=== PATIENT | female | born 1940 | race Two or more races ===

== ENCOUNTER → 2017-11-29 | Outpatient (CLI) | payer MEDICARE ==
[~2017-11-29] MED LIST: AMOX500 PO; ASPI325 PO; Co Q-1010 MG; DILT180ER PO; DOCU100 PO; Multivitamin1 EAC1; ONDA4 PO; OXYACE5T PO; VITAMIN D2000 UNIT; Vitamin B Comple1 EA PO; XARELTO20 MG PO
== END | disposition home or self-care (01) ==
LOC: LAB SHORT 07:23 → PLD 07:23
DX: C44.712 Basal cell carcinoma of skin of right lower limb, including hip (principal); L30.8 Other specified dermatitis
CPT/HCPCS: 88305; 88312; 88313

== ENCOUNTER → 2018-01-16 | Outpatient (CLI) | payer MEDICARE ==
[~2018-01-16] MED LIST changes: -Co Q-1010 MG; -DILT180ER PO; -Multivitamin1 EAC1; -VITAMIN D2000 UNIT; -Vitamin B Comple1 EA PO; -XARELTO20 MG PO
== END ==
LOC: LAB SHORT 14:17 → PLD 14:17
DX: C44.712 Basal cell carcinoma of skin of right lower limb, including hip (principal)
CPT/HCPCS: 88305

== ENCOUNTER 2019-07-08 05:39 | Day surgery (SDC) | payer MEDICARE ==
[~2019-07-08] VITALS: Ht 154.9 cm; Wt 65.0 kg
[~2019-07-08 05:39] MED LIST changes: +Co Q-1010 MG; +DILT180ER PO; +METO25ER PO; +OMEPRAZOLE20 MG PO; +THERA1 EACH PO; +VITAMIN D2000 UNIT; +Vitamin B Comple1 EA PO; +XARELTO20 MG PO
--- NOTE | 2019-07-08 07:25 | NUR ---
ASHLYN POWELL AND HITESH IN ROOM TO SEE PATIENT.
--- NOTE | 2019-07-08 08:11 | NUR ---
TIME OUT COMPLETED AT 0749. PT RECEIVED 200J SYNCHRONIZED SHOCK AT 0751; AND A 100 J SYNCHRONIZED SHOCK AT 0800. PT TOLERATED CARDIOVERSION WELL. CALL LIGHT IN REACH.
--- NOTE | 2019-07-08 08:29 | NUR ---
MICHAEL IN ROOM FOR POST CARDIOVERSION ECH0.
--- NOTE | 2019-07-08 09:10 | NUR ---
DISCHARGE INSTRUCTIONS REVIEWED AND ALL QUESTIONS ANSWERED. 20 G IV DISCONTINUED FROM LEFT WRIST WITH INTACT CANNULA. PT ESCORTED OUT VIA WHEELCHAIR ESCORT.
== END 2019-07-08 23:06 | disposition home or self-care (01) ==
LOC: MHTC 05:39
DX: I48.0 Paroxysmal atrial fibrillation (principal); I08.3 Combined rheumatic disorders of mitral, aortic and tricuspid valves; R60.9 Edema, unspecified; E78.5 Hyperlipidemia, unspecified; G47.30 Sleep apnea, unspecified; Z88.5 Allergy status to narcotic agent; Z88.8 Allergy status to other drugs, medicaments and biological substances
CPT/HCPCS: 92960; 93005; 93010; 93306; J2704; J7120

== ENCOUNTER 2019-07-17 17:45 | Inpatient (IN) | payer MEDICARE ==
[~2019-07-17] VITALS: Ht 154.9 cm; Wt 66.1 kg
[2019-07-17 19:32] LABS: BASOPHILS ABSOLUTE AUTO 0.07 K/mm3 (0.00-0.23); BASOPHILS PERCENT AUTO 1 % (0-2); EOSINOPHILS ABSOLUTE AUTO 0.46 K/mm3 (0.00-0.68); EOSINOPHILS PERCENT AUTO 5 % (0-6); Hematocrit 38.7 % (33.0-51.0); Hemoglobin 12.5 g/dL (11.5-16.0); IMMATURE GRAN ABSOLUTE AUTO 0.05 K/mm3 (0.00-0.10); IMMATURE GRAN PERCENT AUTO 1 % (0-1); LYMPHOCYTES ABSOLUTE AUTO 1.77 K/mm3 (0.84-5.20); LYMPHOCYTES PERCENT AUTO 21 % (21-46); MONOCYTES ABSOLUTE AUTO 0.67 K/mm3 (0.16-1.47); MONOCYTES PERCENT AUTO 8 % (4-13); Mean Corpuscular HGB 30.6 pg (26.0-34.0); Mean Corpuscular HGB Conc 32.3 g/dL (31.5-36.5); Mean Corpuscular Volume 95 fL (80-100); Mean Platelet Volume 10.3 fL (9.1-12.4); NEUTROPHILS ABSOLUTE AUTO 5.54 K/mm3 (1.96-9.15); NEUTROPHILS PERCENT AUTO 65 % (41-73); Platelet Count 377 K/mm3 (150-400); RDW Coefficient Variation 13.9 % (11.7-14.2); RDW Standard Deviation 48.6 fL (35.1-46.3); Red Blood Cell Count 4.08 M/mm3 (3.80-5.20); White Blood Cell Count 8.56 K/mm3 (4.00-11.30)
[2019-07-17 19:59] LABS: Alanine Aminotransfer (ALT/SGP 49 U/L (12-78); Albumin, Blood 3.4 g/dL (3.4-5.0); Albumin/Globulin Ratio 0.8 (0.8-1.8); Alk Phos 89 U/L (50-136); Anion Gap 5 mmol/L (6-16); Aspartate Aminotrans (AST/SGOT 30 U/L (12-37); Bilirubin, Total 0.4 mg/dL (0.1-1.0); Blood Urea Nitrogen 15 mg/dL (8-24); Bun/Creatinine Ratio 18.5 (12.0-20.0); CO2, Blood 27 mmol/L (21-32); Chloride, Blood 105 mmol/L (98-108); Creatinine, Blood 0.81 mg/dL (0.40-1.00); Globulin, Blood 4.1 g/dL (2.2-4.0); Glomerular Filtration Rate >60 (60-); Glucose, Blood 103 mg/dL (70-99); Potassium, Blood 4.1 mmol/L (3.5-5.5); Sodium, Blood 137 mmol/L (136-145); Total Protein, Blood 7.5 g/dL (6.4-8.2); Troponin I <0.015 ng/mL (0.000-0.040)
[2019-07-18] MEDS ORDERED: METO25ER PO (03:11)
[2019-07-18] MEDS ORDERED: COMPLETE PO (03:15)
[2019-07-18] MEDS ORDERED: VITAMIN D31000 UNI2 PO (03:17)
[2019-07-18] MEDS ORDERED: B Complex-Foli1 EACH PO (03:18)
[2019-07-18] MEDS ORDERED: VITAMIN C PO (03:18)
[2019-07-18 04:46] LABS: BASOPHILS ABSOLUTE AUTO 0.07 K/mm3 (0.00-0.23); BASOPHILS PERCENT AUTO 1 % (0-2); EOSINOPHILS ABSOLUTE AUTO 0.55 K/mm3 (0.00-0.68); EOSINOPHILS PERCENT AUTO 7 % (0-6); Hematocrit 36.2 % (33.0-51.0); Hemoglobin 11.7 g/dL (11.5-16.0); IMMATURE GRAN ABSOLUTE AUTO 0.04 K/mm3 (0.00-0.10); IMMATURE GRAN PERCENT AUTO 1 % (0-1); LYMPHOCYTES ABSOLUTE AUTO 1.54 K/mm3 (0.84-5.20); LYMPHOCYTES PERCENT AUTO 19 % (21-46); MONOCYTES PERCENT AUTO 9 % (4-13); Mean Corpuscular HGB 30.9 pg (26.0-34.0); Mean Corpuscular HGB Conc 32.3 g/dL (31.5-36.5); Mean Corpuscular Volume 96 fL (80-100); Mean Platelet Volume 10.3 fL (9.1-12.4); NEUTROPHILS ABSOLUTE AUTO 5.15 K/mm3 (1.96-9.15); NEUTROPHILS PERCENT AUTO 64 % (41-73); Platelet Count 353 K/mm3 (150-400); RDW Standard Deviation 49.1 fL (35.1-46.3); Red Blood Cell Count 3.79 M/mm3 (3.80-5.20); White Blood Cell Count 8.05 K/mm3 (4.00-11.30)
[2019-07-18 05:05] LABS: Anion Gap 4 mmol/L (6-16); Blood Urea Nitrogen 13 mg/dL (8-24); Bun/Creatinine Ratio 16.2 (12.0-20.0); CO2, Blood 31 mmol/L (21-32); Calcium, Blood 8.8 mg/dL (8.5-10.1); Chloride, Blood 104 mmol/L (98-108); Glomerular Filtration Rate >60 (60-); Glucose, Blood 91 mg/dL (70-99); Potassium, Blood 3.9 mmol/L (3.5-5.5); Sodium, Blood 139 mmol/L (136-145)
--- NOTE | 2019-07-18 06:42 | NUR ---
Shift summary. Pt admitted around 0400 from ER with pneumonia. Admission completed. Pt given some tums for c/o regurg. pt getting a thoracentesis in am. Pt started on a tibiotics in er- tolerated well. Pt ambulatory with use of cane- does very well.
--- NOTE | 2019-07-18 19:33 | NUR ---
SHIFT SUMMARY PT 1 PERSON ASSIST USING FWW TO BATHRROM AND BACK. UP IN CHAIR FOR SUPPER. SHOWER TAKEN THIS MORNING. HR HAS BEEN IN 115-130'S TODAY WITH LOPRESSOR TREATMENT. REPORTS WHEN SHE STARTS GETTING BURPS HER HEART RATE HAS A TENDENCY TO INCREASE. PLANS FOR THORACENTESIS FOR TOMORROW. SOB WITH ANY ACTIVITY. SEVERAL VISITORS IN TO SEE PT THROUGH DAY.
--- NOTE | 2019-07-19 05:16 | NUR ---
SHIFT SUMMARY: PT A&O X4. HR REMAINS ELEVATED T/O SHIFT. PER CUSTOM FURRIER, HR RANGING FROM 105-110 THIS MORNING WITH AFIB. O2 SATS STABLE ON 2L VIA NC. SOB WITH EXERTION. PT 1 SBA TO BATHROOM USING FWW. VOIDING WELL. ABX INFUSING PER EMAR. PLAN FOR THORACENTESIS TODAY.
--- NOTE | 2019-07-19 18:24 | NUR ---
PATIENT A/OX4, UP WITH FWW AND SBA IN HALLS. A-FIB ON TELE, PULSE HIGH THE 130'S AND DR. SILVA ORDERED A ONE TIME DOSE OF METOPROLOL. SHE WILL RECEIVE ANOTHER DOSE THIS EVENING. PATIENT ON 2LO2, LUNGS DIM IN THE BASES. COOPERATIVE WITH CAER, CAN BE ANXIOUS AT TIMES. PLAN WAS TO HAVE A THORACENTESIS TODAY, BUT XARELTO WAS GIVEN IN THE EVENING ON 07/17 AND HAS TO WAIT AT LEAST 48 HOURS AFTER THE LAST DOSE. PATIENT ON LOVENOX TODAY, TO BE HELD TOMORROW. 20G IV TO L FA WNL AND SL BETWEEN ABX. CALLS APPROPRIATELY FOR ASSISTANCE.
--- NOTE | 2019-07-19 23:14 | NUR ---
EARLIER HR ELEVATED, MED DISTRIBUTION TECH NOTIFIED ME, UPON ENTERING ROOM, PT REPORTED HAVING JUST GOTTEN BACK IN BED POST BR. HS MED GIVEN, VS TAKEN. HR RATE DECREASED TO 111. SEE DOC FLOW SHEETS FOR DETAILS. WILL CONTINUE TO MONITOR. AFFECT SMILING AFTER I SPOKE WITH HER. SHE HAD ALSO VOICED WORRIES RE PROCEDURE TOMORROW (THORACENTESIS). - KATHY
[2019-07-20 05:07] LABS: BASOPHILS ABSOLUTE AUTO 0.06 K/mm3 (0.00-0.23); BASOPHILS PERCENT AUTO 1 % (0-2); EOSINOPHILS ABSOLUTE AUTO 0.47 K/mm3 (0.00-0.68); EOSINOPHILS PERCENT AUTO 6 % (0-6); Hematocrit 32.6 % (33.0-51.0); Hemoglobin 10.3 g/dL (11.5-16.0); IMMATURE GRAN ABSOLUTE AUTO 0.03 K/mm3 (0.00-0.10); IMMATURE GRAN PERCENT AUTO 0 % (0-1); LYMPHOCYTES ABSOLUTE AUTO 1.46 K/mm3 (0.84-5.20); LYMPHOCYTES PERCENT AUTO 19 % (21-46); MONOCYTES ABSOLUTE AUTO 0.74 K/mm3 (0.16-1.47); MONOCYTES PERCENT AUTO 10 % (4-13); Mean Corpuscular HGB 30.1 pg (26.0-34.0); Mean Corpuscular HGB Conc 31.6 g/dL (31.5-36.5); Mean Corpuscular Volume 95 fL (80-100); Mean Platelet Volume 10.5 fL (9.1-12.4); NEUTROPHILS ABSOLUTE AUTO 4.95 K/mm3 (1.96-9.15); NEUTROPHILS PERCENT AUTO 64 % (41-73); Platelet Count 339 K/mm3 (150-400); RDW Standard Deviation 49.2 fL (35.1-46.3); Red Blood Cell Count 3.42 M/mm3 (3.80-5.20); White Blood Cell Count 7.71 K/mm3 (4.00-11.30)
[2019-07-20 05:29] LABS: Alanine Aminotransfer (ALT/SGP 30 U/L (12-78); Albumin, Blood 2.6 g/dL (3.4-5.0); Albumin/Globulin Ratio 0.8 (0.8-1.8); Alk Phos 68 U/L (50-136); Anion Gap 5 mmol/L (6-16); Aspartate Aminotrans (AST/SGOT 24 U/L (12-37); Bilirubin, Total 0.3 mg/dL (0.1-1.0); Blood Urea Nitrogen 13 mg/dL (8-24); Bun/Creatinine Ratio 16.2 (12.0-20.0); CO2, Blood 28 mmol/L (21-32); Calcium, Blood 8.2 mg/dL (8.5-10.1); Chloride, Blood 108 mmol/L (98-108); Globulin, Blood 3.2 g/dL (2.2-4.0); Glomerular Filtration Rate >60 (60-); Glucose, Blood 102 mg/dL (70-99); Potassium, Blood 3.9 mmol/L (3.5-5.5); Sodium, Blood 141 mmol/L (136-145); Total Protein, Blood 5.8 g/dL (6.4-8.2)
--- NOTE | 2019-07-20 05:53 | NUR ---
INTERMITTENT RESTLESSNESS MID SHIFT, VOICED WORRIES RE THORACENTESIS TO BE PERFORMED TODAY. DISCUSSED PROCEDURES WITH NURSE, SEEMED LESS APPREHENSIVE. WAS UP TO BATHROOM X 1 AT HS AND HR ELEVATED TO 130'S - MOLD BUNCH TRIMMER NOTIFIED NURSE, NURSE CHECKED HER. PULSE DECREASED TO 111. SCHEDULED MEDS GIVEN (SEE DEC) AND NO NOTED FURTHER S/S. CURRENTLY RESTING QUIETLY. HOB ELEVATED FOR ERWIN BREATHING. LUNG SOUNDS DIMINISHED. CALL LIGHT IN REACH.
[2019-07-20 13:32] LABS: Automated BF RBC Count 0.003 M/mm3 (0-0); Automated BF WBC Count 1.959 K/mm3 (0-999); Body Fluid WBC Count 1959 /mm3 (0-999); RBC Count, Body Fluid 3000 /mm3 (0-0)
[2019-07-20 13:40] LABS: Albumin, Body Fluid 2.2 g/dL; Lactate Dehydrogenase, Body Fl 147 U/L
[2019-07-20 14:35] LABS: Total Cell Count, Body Fluid 100
[2019-07-20 14:36] LABS: Appearance, Body Fluid Hazy (Clear); Color, Body Fluid Yellow (None-Yellow)
--- NOTE | 2019-07-20 18:51 | NUR ---
PT TO IMAGING FOR [place].S. GUIDED THORACENTESIS THIS AFTERNOON. TOLERATED WELL, SEE PROCEDURE NOTES. NO ACUTE CHANGES NOTED THIS SHIFT. WILL CONTINUE TO MONITOR AND REPORT TO ONCOMING RN.
--- NOTE | 2019-07-21 04:43 | NUR ---
SHIFT COMMENCE PT VOICED APPREHENSION RE DISCOMFORT AROUND SIDES AND BACK POST THORACENTESIS. SITE CHECKED, BANDAID HAD SMALL AMT DRY DRAINAGE. SITE APPEARED DRY. IV ANTIBIOTICS CONTINUED. LATER IN SHIFT PT NOTED TO BE SLEEPING POST RECEIVING TYLENOL FOR PAIN. CALL LIGHT IN REACH. WILL MONITOR
[2019-07-21 07:03] LABS: BASOPHILS ABSOLUTE AUTO 0.07 K/mm3 (0.00-0.23); BASOPHILS PERCENT AUTO 1 % (0-2); EOSINOPHILS ABSOLUTE AUTO 0.54 K/mm3 (0.00-0.68); EOSINOPHILS PERCENT AUTO 6 % (0-6); Hematocrit 33.8 % (33.0-51.0); Hemoglobin 10.9 g/dL (11.5-16.0); IMMATURE GRAN ABSOLUTE AUTO 0.05 K/mm3 (0.00-0.10); IMMATURE GRAN PERCENT AUTO 1 % (0-1); LYMPHOCYTES ABSOLUTE AUTO 0.93 K/mm3 (0.84-5.20); LYMPHOCYTES PERCENT AUTO 11 % (21-46); MONOCYTES ABSOLUTE AUTO 0.79 K/mm3 (0.16-1.47); MONOCYTES PERCENT AUTO 9 % (4-13); Mean Corpuscular HGB 30.2 pg (26.0-34.0); Mean Corpuscular HGB Conc 32.2 g/dL (31.5-36.5); Mean Corpuscular Volume 94 fL (80-100); NEUTROPHILS ABSOLUTE AUTO 6.36 K/mm3 (1.96-9.15); NEUTROPHILS PERCENT AUTO 73 % (41-73); Platelet Count 382 K/mm3 (150-400); RDW Coefficient Variation 14.1 % (11.7-14.2); RDW Standard Deviation 48.5 fL (35.1-46.3); Red Blood Cell Count 3.61 M/mm3 (3.80-5.20); White Blood Cell Count 8.74 K/mm3 (4.00-11.30)
[2019-07-21 07:23] LABS: Alanine Aminotransfer (ALT/SGP 31 U/L (12-78); Albumin, Blood 2.6 g/dL (3.4-5.0); Albumin/Globulin Ratio 0.8 (0.8-1.8); Alk Phos 66 U/L (50-136); Anion Gap 2 mmol/L (6-16); Aspartate Aminotrans (AST/SGOT 31 U/L (12-37); Bilirubin, Total 0.3 mg/dL (0.1-1.0); Blood Urea Nitrogen 14 mg/dL (8-24); Bun/Creatinine Ratio 17.9 (12.0-20.0); CO2, Blood 29 mmol/L (21-32); Calcium, Blood 8.4 mg/dL (8.5-10.1); Chloride, Blood 108 mmol/L (98-108); Creatinine, Blood 0.78 mg/dL (0.40-1.00); Globulin, Blood 3.2 g/dL (2.2-4.0); Glomerular Filtration Rate >60 (60-); Glucose, Blood 107 mg/dL (70-99); Potassium, Blood 4.1 mmol/L (3.5-5.5); Sodium, Blood 139 mmol/L (136-145); Total Protein, Blood 5.8 g/dL (6.4-8.2)
--- NOTE | 2019-07-21 18:42 | NUR ---
PT IS FEELING BETTER TODAY AND IS HOPING TO GO HOME TOMORROW. CHEST XRAY DID SHOW A NEW SM LEFT PLEURAL EFFUSION. PT PLACED ON 1500 ML FLUID RESTRICTION. SHE REMAINS ON 2LNC. NO ACUTE CHANGES NOTED THIS SHIFT. WILL CONTINUE TO MONITOR AND REPORT TO ONCOMING RN.
--- NOTE | 2019-07-22 00:29 | NUR ---
PREVIOUS IV SWELLING WITH PAIN, WAS DC'D AND NEW IV PLACED BY ANOTHER RN
--- NOTE | 2019-07-22 03:31 | NUR ---
RESTING QUIETLY AT THIS TIME. HAS BEEN AWAKE AT INTERVALS, VOICED FRUSTRATION RE IV SITES PAIN AND NEEDING TO BE CHANGED. IV ANTIBIOTICS CONTINUE. CALL LIGHT IN REACH. WILL MONITOR.
[2019-07-22 05:03] LABS: BASOPHILS ABSOLUTE AUTO 0.06 K/mm3 (0.00-0.23); BASOPHILS PERCENT AUTO 1 % (0-2); EOSINOPHILS PERCENT AUTO 5 % (0-6); Hematocrit 32.6 % (33.0-51.0); Hemoglobin 10.6 g/dL (11.5-16.0); IMMATURE GRAN ABSOLUTE AUTO 0.04 K/mm3 (0.00-0.10); IMMATURE GRAN PERCENT AUTO 1 % (0-1); LYMPHOCYTES ABSOLUTE AUTO 1.27 K/mm3 (0.84-5.20); LYMPHOCYTES PERCENT AUTO 15 % (21-46); MONOCYTES ABSOLUTE AUTO 0.81 K/mm3 (0.16-1.47); MONOCYTES PERCENT AUTO 10 % (4-13); Mean Corpuscular HGB 30.5 pg (26.0-34.0); Mean Corpuscular HGB Conc 32.5 g/dL (31.5-36.5); Mean Corpuscular Volume 94 fL (80-100); Mean Platelet Volume 10.4 fL (9.1-12.4); NEUTROPHILS ABSOLUTE AUTO 5.95 K/mm3 (1.96-9.15); NEUTROPHILS PERCENT AUTO 70 % (41-73); Platelet Count 387 K/mm3 (150-400); RDW Coefficient Variation 14.1 % (11.7-14.2); RDW Standard Deviation 47.4 fL (35.1-46.3); Red Blood Cell Count 3.48 M/mm3 (3.80-5.20); White Blood Cell Count 8.53 K/mm3 (4.00-11.30)
[2019-07-22 05:21] LABS: Alanine Aminotransfer (ALT/SGP 37 U/L (12-78); Albumin, Blood 2.5 g/dL (3.4-5.0); Albumin/Globulin Ratio 0.8 (0.8-1.8); Alk Phos 63 U/L (50-136); Anion Gap 6 mmol/L (6-16); Aspartate Aminotrans (AST/SGOT 42 U/L (12-37); Bilirubin, Total 0.3 mg/dL (0.1-1.0); Blood Urea Nitrogen 11 mg/dL (8-24); Bun/Creatinine Ratio 13.2 (12.0-20.0); CO2, Blood 26 mmol/L (21-32); Calcium, Blood 8.2 mg/dL (8.5-10.1); Chloride, Blood 108 mmol/L (98-108); Creatinine, Blood 0.83 mg/dL (0.40-1.00); Globulin, Blood 3.2 g/dL (2.2-4.0); Glomerular Filtration Rate >60 (60-); Glucose, Blood 111 mg/dL (70-99); Potassium, Blood 3.9 mmol/L (3.5-5.5); Sodium, Blood 140 mmol/L (136-145); Total Protein, Blood 5.7 g/dL (6.4-8.2)
--- NOTE | 2019-07-22 08:15 | NUR ---
ADVISE THAT HEART RATE HAS BEEN RUNNING 100-130 AFIB AT NIGHT. CURRENTLY 120'S. WILL LOOK AT MEDS.
--- NOTE | 2019-07-22 15:03 | NUR ---
DISCUSS WITH PATIENT BEING INDEPENDENT IN ROOM EXCEPT WHEN ANTIBIOTIC IS HOOKED UP SO THAT IV IS NOT PULLED. STEADY GAIT. USES WALKER APPROPRIATELY
--- NOTE | 2019-07-22 15:20 | NUR ---
TALKED TO ABOUT PATIENT WANTING TO USE "ONION POULTICE" TO CHEST. OK PER MD UNLESS OTHER ROOMS C/O ABOUT ODER. TALK ABOUT CARDIOLOGY CONSULT AND WILL PUT IN.
--- NOTE | 2019-07-22 17:44 | NUR ---
ALERT. ORIENTED. INDEPENDENT IN THE ROOM. ON 2 LPM VIA N/C. TELE ON STILL AFIB. HEART RATE GOES UP WHEN MOVING. PAGED CARDIOLOGY TWICE. WILL LET NIGHT RN KNOW IF DO NOT HEAR BACK FROM THEM. NO ACUTE CHANGES. WCTM
--- NOTE | 2019-07-22 22:45 | NUR ---
IV WAS LEAKING AND NO LONGER PATENT AT START OF SHIFT SO WAS DC'D. NEW IV WAS PLACED TO R.AC VIA US BY SAHRA PLEITEZ D/T BEING A DIFFICULT IV START. IV ABX WERE GIVEN LATE RESULT.
--- NOTE | 2019-07-23 02:07 | NUR ---
CARDIOLOGY CX CALLED TO ANSWERING SERVICE ON 07/23/19 AT 0206.
--- NOTE | 2019-07-23 05:21 | NUR ---
SUMMARY: A/OX4, SPECIFIES NEEDS AND INDEPENDENT IN ROOM BUT KNOWS TO CALL FOR ASSIST PRN. PT IS COMPLIANT W/1500 ML FLUID RESTRICT AND IS VOIDING WELL. SHE REMAINS IN AFIB PER TELEMETRY W/HR 90'S TO 120'S AND RATE CONTROLLED W/ METOPROLOL. XARELTO RECIEVED AND CARDIOLOGY CX WAS CALLED TO 'S ANSWERING SERVICE. PT REMAINS ON 2L O2 W/SPO2 WNL, RESPS E/U BUT PT ADMITS TO GETTING "WINDED" WHEN UP TO TOILET. NEW IV WAS PLACED BY SAHRA PLEITEZ VIA US D/T PREVIOUS IV LEAKING. IV ABX RECIEVED LATE RESULT. NO ACUTE CHANGES, VSS/AFEBRILE. WCTM AND REPORT TO DAY RN.
--- NOTE | 2019-07-23 11:31 | NUR ---
REPORT TO BRENTON DE LA PAZ RN AT BEDSIDE PCU 7.
--- NOTE | 2019-07-23 11:35 | NUR ---
PATIENT TO PCU 7 VIA W/C ON OXYGEN WITH BEDSIDE REPORTING. MORNING MEDS NOT GIVEN PER DR. POWELL. AWARE PATIENT TRANSFERRED TO PCU TO BE ON AMIODARONE DRIP. ANSWER ALL QUESTIONS. MORNING MEDS THAT WERE PULLED THIS AM BROUGHT TO PCU INCASE WISHES TO GIVE LATER.
[2019-07-23 11:36] LABS: Thyroid Stimulating Hormone 1.49 uIU/mL (0.360-4.800)
--- NOTE | 2019-07-23 20:02 | NUR ---
SHIFT SUMMARY RECEIVED BEDSIDE REPROT FROM KYM NUNEZ FROM MEDICAL FLOOR, PT TO ROOM VIA WHEELCHAIR WITH 2L O2 VIA NC AT 1130. PT ORIENTED TO ROOM AND UNIT AND EDUCATED ON FALL RISK AND TO CALL PRIOR TO GETTING OUT OF BED. PT TRANSFERED TO PCU DUE TO AFIB WITH RVR AND THE NEED FOR A AMIODARONE GTT. PT A&Ox3, ANXIOUS A TIMES AND COOPERATIVE WITH CARE. PT REPROTS FEELING DEPRESSED AND STATES SHE JUST WANTS TO GO HOME, TEARFUL AT TIMES. PT UP TO [facility] [place] 1 PERSON ASSISTS. PT REPORT PAIN BETWEEN HER SHOULD BLADDERS, SHE STATES IT STARTED AFTER HER CARDIOVERSION ON 07/08/19 AND HAS BEEN WORSE SINCE BEING ADMITTED, PT STATES ARCHING HER BACK MAKES IT BETTER, ELIN ACUNA NOTIFIED, NEW ORDERS FOR LIDOCAINE PATCH. PT SOB WITH EXERTION, SPO2 >92% ON 2L, BREATHING EVEN AND UNLABORED. PT REPORST REFULX AND BELCHING T/O SHIFT. TELE AFIB AVERAGING 130'S ONCE TRANSFERED TO ROOM, EKG COMPLETED, AMIODARONE BOLUS AND GTT STARTED PER ORDERS. CALLED DR POWELL FOR CLARIFICATION ON HELD AM MEDICATIONS, GIVE NEW DOSE OF METOPROLOL AND REST OF AM MEDS AT 1310. PT RECEIVING IV ANTIBIOTICS. OTHER VSS. NO OTHER ACUTE CHANGES NOTED DURING SHIFT. REPORT GIVEN TO ONCAPRYL MEJÍA.
[2019-07-24 03:44] LABS: BASOPHILS ABSOLUTE AUTO 0.05 K/mm3 (0.00-0.23); BASOPHILS PERCENT AUTO 0 % (0-2); EOSINOPHILS ABSOLUTE AUTO 0.18 K/mm3 (0.00-0.68); EOSINOPHILS PERCENT AUTO 2 % (0-6); Hematocrit 35.2 % (33.0-51.0); Hemoglobin 11.3 g/dL (11.5-16.0); IMMATURE GRAN ABSOLUTE AUTO 0.07 K/mm3 (0.00-0.10); IMMATURE GRAN PERCENT AUTO 1 % (0-1); LYMPHOCYTES ABSOLUTE AUTO 1.72 K/mm3 (0.84-5.20); LYMPHOCYTES PERCENT AUTO 15 % (21-46); MONOCYTES ABSOLUTE AUTO 0.98 K/mm3 (0.16-1.47); MONOCYTES PERCENT AUTO 9 % (4-13); Mean Corpuscular HGB 30.5 pg (26.0-34.0); Mean Corpuscular HGB Conc 32.1 g/dL (31.5-36.5); Mean Corpuscular Volume 95 fL (80-100); Mean Platelet Volume 10.3 fL (9.1-12.4); NEUTROPHILS PERCENT AUTO 74 % (41-73); Platelet Count 470 K/mm3 (150-400); RDW Coefficient Variation 14.1 % (11.7-14.2); RDW Standard Deviation 48.7 fL (35.1-46.3); Red Blood Cell Count 3.71 M/mm3 (3.80-5.20)
[2019-07-24 04:00] LABS: Alanine Aminotransfer (ALT/SGP 38 U/L (12-78); Anion Gap 6 mmol/L (6-16); Aspartate Aminotrans (AST/SGOT 28 U/L (12-37); Blood Urea Nitrogen 14 mg/dL (8-24); CO2, Blood 30 mmol/L (21-32); Chloride, Blood 103 mmol/L (98-108); Creatinine, Blood 0.94 mg/dL (0.40-1.00); Glomerular Filtration Rate >60 (60-); Glucose, Blood 138 mg/dL (70-99); Potassium, Blood 3.8 mmol/L (3.5-5.5); Sodium, Blood 139 mmol/L (136-145)
--- NOTE | 2019-07-24 06:22 | NUR ---
SHIFT SUMMARY PT SLEEPING IN ROOM COMFORTABLY AT THIS TIME. PT HAD NO ACUTE CHANGES IN STATUS T/O NIGHT. PT CALLED MULTIPLE TIMES PRESS ASSISTANT LIGHT FOR PAIN, AND REPOSITIONING, AND DISCOMFORT. PT HAD ONCE EPISODE OF ANXIETY AND TEARFULNESS DURING THE NIGHT, WAS ABLE TO COMFORT PT WITH THERAPUETIC CONVERSATION. PT THEN WAS ABLE TO SLEEP WELL AFTER CONVERSATION. DENIED CP OR SOB. RESP EVEN UNLABORED ON 2L NC W/ SATS >92%. DENIES OTHER NEEDS AT THIS TIME. CALL LIGHT IN REACH.
--- NOTE | 2019-07-24 18:28 | NUR ---
SHIFT SUMMARY PT A&Ox3. ANXIOUS T/O SHIFT TEARFULL AT TIMES. PT STATES THIS AM THAT SHE IS GOING TO BE DEPRESSED AGAIN TODAY, USED THERAPUTIC COMMUNICATION T/O SHIFT. PT REPORTS PAIN IN RIGHT SHOULD, PT DENIES NEEDS FOR PAIN MEDICATIONS. REPOSITION FOR COMFORT AND UNINTERRUPTED REST. TELE AFIB 120-130'S T/O SHIFT, NOTIFED DR POWELL, NEW ORDERS ENTERED, WILL MEDICATE PER EMAR, TRANSITIONING TO PO AMIODARONE. PT SOB WITH EXERTION, PT ON 2L O2 VIA NC, SPO2 >92%. PLANS FOR THORACENTESIS TOMORROW, HELD LOVENOX 1800 AND 0600 IN ANTICIPATION OF PROCEDURE. PT RECEIVING IV ANTIBIOTICS. OTHER VSS. NO OTHER ACUTE CHANGES NOTED DURING SHIFT. WILL MONITOR UNTIL REPORT GIVEN TO ONCOMING RN.
[2019-07-25 04:22] LABS: BASOPHILS ABSOLUTE AUTO 0.06 K/mm3 (0.00-0.23); BASOPHILS PERCENT AUTO 1 % (0-2); EOSINOPHILS ABSOLUTE AUTO 0.13 K/mm3 (0.00-0.68); EOSINOPHILS PERCENT AUTO 1 % (0-6); Hematocrit 34.1 % (33.0-51.0); Hemoglobin 10.8 g/dL (11.5-16.0); IMMATURE GRAN ABSOLUTE AUTO 0.07 K/mm3 (0.00-0.10); IMMATURE GRAN PERCENT AUTO 1 % (0-1); LYMPHOCYTES ABSOLUTE AUTO 1.14 K/mm3 (0.84-5.20); LYMPHOCYTES PERCENT AUTO 11 % (21-46); MONOCYTES ABSOLUTE AUTO 1.03 K/mm3 (0.16-1.47); MONOCYTES PERCENT AUTO 10 % (4-13); Mean Corpuscular HGB Conc 31.7 g/dL (31.5-36.5); Mean Corpuscular Volume 95 fL (80-100); Mean Platelet Volume 10.4 fL (9.1-12.4); NEUTROPHILS ABSOLUTE AUTO 8.13 K/mm3 (1.96-9.15); NEUTROPHILS PERCENT AUTO 77 % (41-73); Platelet Count 449 K/mm3 (150-400); RDW Coefficient Variation 14.1 % (11.7-14.2); RDW Standard Deviation 49.2 fL (35.1-46.3); White Blood Cell Count 10.56 K/mm3 (4.00-11.30)
[2019-07-25 04:37] LABS: International Normalized Ratio 1.29; Prothrombin Time Results 13.4 Sec (9.7-11.5)
[2019-07-25 04:40] LABS: Alanine Aminotransfer (ALT/SGP 33 U/L (12-78); Anion Gap 5 mmol/L (6-16); Aspartate Aminotrans (AST/SGOT 22 U/L (12-37); Blood Urea Nitrogen 9 mg/dL (8-24); Bun/Creatinine Ratio 11.3 (12.0-20.0); CO2, Blood 29 mmol/L (21-32); Chloride, Blood 103 mmol/L (98-108); Glomerular Filtration Rate >60 (60-); Glucose, Blood 123 mg/dL (70-99); Potassium, Blood 3.7 mmol/L (3.5-5.5); Sodium, Blood 137 mmol/L (136-145)
--- NOTE | 2019-07-25 06:24 | NUR ---
SHIFT SUMMARY PT SLEEPING IN ROOM COMFORTABLY AT THIS TIME. NO ACUTE CHANGES IN STATUS T/O NIGHT. PT SLEPT IN SHORT PERIODS AND CALLED STAFF TO ROOM MULTIPLE TIMES T/O NIGHT C/O PAIN. PT WAS OFFERED MUTLIPLE RESOURCES TO ASSIST IN PAIN RELIEF. PT WAS REPOSITIONED MULTIPLE TIMES, MOVED FROM BED TO RECLINER AND BACK TO BED. HEAT PAD APPLIED, AND OFFERED TYLENOL FOR PAIN RELEIF. PT REPORTS "TYLENOL MAKES ME CRAZY AND SAY MEAN THINGS TO PEOPLE, AND LAST TIME I TOOK IT I THREW IT UP I DONT WANT THAT". PT AGAIN REPOSITIONED TO ASSIST IN PAIN RELIEF. RESP EVEN UNLABORED AT REST W/ ATS >92% ON 2L O2. PT TO HAVE THORACENTESIS THIS AM TO PULL FLUID OFF OF LUNG FEILD. PT AWARE. CALL LIGHT IN REACH.
--- NOTE | 2019-07-25 10:36 | NUR ---
NURSING PCU DAYSHIFT: Assumed care of pt at approx 0700. A/O, very anxious, cooperative w/care. Mild weakness, able to ambulate w/one staff assist using FWW. Denies any pain/discomfort at rest. Skin is fragile, mild scattered bruising on UE's/hands. Tele in place, afib w/HR 110-120's, no c/o CP/pressure, BP stable, trace BLE edema. L/S clear in upper lobes, dim in RML and LLL, absent in RLL, respirations shallow, dyspnea w/minimal exertion, O2 sat mid 90's on 2L NC, dry/LOGGING SPECIALIST cough. Abd SNT, BT+, voiding w/o difficulty, urgency d/t diuretics. PG present in LUE, s/l w/abx as schedule. No s/s of acute distress at this time, plan for thoracentesis between 2259-6715. Son at bedside, plan of care discussed, questions addressed. K+ rider infusing as ordered. Worked w/P.T. this a.m., tolerated well, able to ambulate t/o room w/o difficulty. Pt and son deny any additional questions/needs at this time, awaiting rounding from PMD, call light in reach, cont to monitor for any changes.
[2019-07-25 14:51] LABS: Lactate Dehydrogenase, Body Fl 94 U/L; Protein, Body Fluid 3.2 g/dL
[2019-07-25 16:41] LABS: Appearance, Body Fluid Hazy (Clear); Automated BF RBC Count 0.003 M/mm3 (0-0); Body Fluid WBC Count 540 /mm3 (0-999); Color, Body Fluid L Yellow (None-Yellow); RBC Count, Body Fluid 3000 /mm3 (0-0)
[2019-07-25 16:43] LABS: pH, Body Fluid 7.7
--- NOTE | 2019-07-25 16:52 | NUR ---
NURSING PCU DAYSHIFT SUMMARY: No significant changes noted t/o the shift. Remains hypertensive which continues to be treated w/labetalol as ordered. Pt has experienced nausea w/intermittent clear/green emesis t/o majority of the shift even while NPO. Call placed to day surgery to confirm EGD remains scheduled for this evening. Pt appears to be resting at this time w/only c/o sore throat r/t frequent emesis. Denies any current needs or questions regarding plan of care. Call light in reach and pt is able to use w/o difficulty. Cont to monitor until rpt is given to NOC RN.
[2019-07-25 17:17] LABS: Total Cell Count, Body Fluid 100
--- NOTE | 2019-07-25 17:19 | NUR ---
NURSING PCU DAYSHIFT SUMMARY: No significant changes noted t/o the shift. VS remained unchanged. Continues to experience dyspnea w/minimal exertion. O2 sat remains >90% w/NC in place. To U/S for thoracentesis this afternoon, tolerated well w/reported [id number] mls of fluid removed from R lung. Drop Wire Operator at bedside this afternoon for assessment and tx, new d/o received. Plan for CXR in a.m., thoracentesis tomorrow for left lung, a.m. lovenox to be held. Pt denies any questions/needs at this time. Spent majority of the shift OOB in a chair, tolerated well. No s/s of acute distress. Cont to monitor until rpt is provided to NOC RN.
[2019-07-25 18:38] LABS: Glucose, Body Fluid 172 mg/dL
--- NOTE | 2019-07-25 22:07 | NUR ---
REFUSED POWERLGIDE DRESSING CHANGE PT EDUCATED ON SCHEDULE FOR HOSPITAL DRESSING CHANGES ON POWERGLIDE AND PICC LINE SITES DURING THIS RN'S PREVIOUS SHIFT ON 07/24. PT REPORTED UNDERSTAND BUT CONTINUED TO REFUSE DRESSING CHANGE STATING "THE IV WAS PUT IN YESTERDAY, IT DOESNT NEED CHANGED I DONT WANT IT CHANGED".
[2019-07-26 04:44] LABS: BASOPHILS ABSOLUTE AUTO 0.07 K/mm3 (0.00-0.23); BASOPHILS PERCENT AUTO 1 % (0-2); EOSINOPHILS ABSOLUTE AUTO 0.27 K/mm3 (0.00-0.68); EOSINOPHILS PERCENT AUTO 3 % (0-6); Hemoglobin 10.9 g/dL (11.5-16.0); IMMATURE GRAN ABSOLUTE AUTO 0.07 K/mm3 (0.00-0.10); IMMATURE GRAN PERCENT AUTO 1 % (0-1); LYMPHOCYTES ABSOLUTE AUTO 1.18 K/mm3 (0.84-5.20); LYMPHOCYTES PERCENT AUTO 11 % (21-46); MONOCYTES ABSOLUTE AUTO 0.74 K/mm3 (0.16-1.47); MONOCYTES PERCENT AUTO 7 % (4-13); Mean Corpuscular HGB 30.4 pg (26.0-34.0); Mean Corpuscular HGB Conc 32.1 g/dL (31.5-36.5); Mean Corpuscular Volume 95 fL (80-100); Mean Platelet Volume 10.5 fL (9.1-12.4); NEUTROPHILS ABSOLUTE AUTO 8.02 K/mm3 (1.96-9.15); NEUTROPHILS PERCENT AUTO 78 % (41-73); Platelet Count 411 K/mm3 (150-400); RDW Coefficient Variation 14.1 % (11.7-14.2); RDW Standard Deviation 49.1 fL (35.1-46.3); Red Blood Cell Count 3.58 M/mm3 (3.80-5.20); White Blood Cell Count 10.35 K/mm3 (4.00-11.30)
[2019-07-26 05:03] LABS: Anion Gap 6 mmol/L (6-16); Blood Urea Nitrogen 12 mg/dL (8-24); CO2, Blood 28 mmol/L (21-32); Calcium, Blood 7.7 mg/dL (8.5-10.1); Chloride, Blood 104 mmol/L (98-108); Glomerular Filtration Rate >60 (60-); Glucose, Blood 119 mg/dL (70-99); Lactate Dehydrogenase (Ld),Bld 241 U/L (100-240); Potassium, Blood 4.4 mmol/L (3.5-5.5); Sodium, Blood 138 mmol/L (136-145); Total Protein, Blood 5.4 g/dL (6.4-8.2)
[2019-07-26 05:50] LABS: Digoxin (Lanoxin) 3.01 ug/mL (0.80-2.00)
--- NOTE | 2019-07-26 06:03 | NUR ---
SHIFT SUMMARY PT RESTING COMFORTABLY IN ROOM AT THIS TIME. PT SLEPT WELL AFTER BEING MEDICATED FOR PAIN PER EMAR. PT REPORTS BEST SLEEP THIS WEEK DURING NIGHT. RESP EVEN UNLABORED ON 2L NC W/ SATS >92%. PT TO UNDERGO THORACENTESIS THIS AM FOR L SIDE. PT GOT THORA ON R SIDE YESTERDAY. DENIES ANY CP, REPORTS SOB ONLY ON EXERTION. PT IN RECLINER AT THIS TIME TO RELEIVE BACK SORENESS. DENIES OTHER NEEDS AT THIS TIME. CALL LIGHT IN REACH.
--- NOTE | 2019-07-26 07:52 | NUR ---
pt sitting in recliner chair, Dr. Wilson in to see her this am, wants Dr. Kovacs to see her for poss EGD. pt is a/ox3, pleasant and cooperative a bit anxious, understands she will be having a thorancentesis today, lungs are clear in upper [place], very dim in bases, resp even and unlabored, is currently on 2 liters o2 via n/c, no cough noted, denies productive cough, hrirr, tele in place running afib per monitor, see strip, no edema noted, ppp+2, cap refill <3sec, vs stable, afebrile, iv site is power glide to jeff site is clear and patent, btx4, abd flat soft nontender, voids without diff, skin c/w/d, maew, uses a walker to ambulate, jimenez, call light in reach.
--- NOTE | 2019-07-26 16:00 | NUR ---
DR ESTRADA IN ROOM SON TO BRING IN SUPPLEMENT TOMORROW SHE TAKES. CONCERN IS IF HAS L-TRIIPTOPHAN IN SUPPLEMENT. CAN HARRIETE PULLM PLEURAL EOSINOPHILIA, CALL DR ESTRADA WITH WHAT MED IS TOMORROW. PASSED TO JELANI MEJÍA.
[2019-07-26 18:18] LABS: Automated BF WBC Count 1.864 K/mm3 (0-999); Body Fluid WBC Count 1864 /mm3 (0-999)
[2019-07-26 18:34] LABS: RBC Count, Body Fluid 471 /mm3 (0-0)
[2019-07-26 18:35] LABS: Lactate Dehydrogenase, Body Fl 188 U/L
[2019-07-26 18:36] LABS: Appearance, Body Fluid Hazy (Clear); Color, Body Fluid L Yellow (None-Yellow)
[2019-07-26 18:40] LABS: Total Cell Count, Body Fluid 100
--- NOTE | 2019-07-26 19:25 | NUR ---
PT PLEASANT TODAY. SOME C/O PAIN IN RT SHOULDER/ARM AND LEFT BACK RIB. MED PER EMAR. PENDING EGD AND DILATION TOMORROW AM DR GORDON. PENDING DR COMPA PARSONS AND CORDIOVERSION MONDAY. BED IN LOW POSITIOIN, CALL LITE IN REACH, CALLS APPROP
--- NOTE | 2019-07-26 19:26 | NUR ---
[address] DUARTE, KAVITA HOLD LOVENOX AM DOSE, CALL DR GORDON FOR IF GIVE TONITE. [address] GORDON. OKAY GIVE TONITE, HOLD AM. BUT CALL TWO NEEDLE MACHINE OPERATOR TO VERIFY. [address] LMTC ON PAGER. [address] CHATMAN, JACOBY ON PHONE. 1914 DR CHATMAN CALLED BACK. OKAY GIVE LOVENOX, JAQUELINE CARDIOVERSION PLANNED FOR MONDAY. DIG LEVELS TOO HIGH. ADVISED ER MEDICAL TECHNICIAN DAN
[2019-07-27 06:01] LABS: BASOPHILS ABSOLUTE AUTO 0.11 K/mm3 (0.00-0.23); BASOPHILS PERCENT AUTO 1 % (0-2); EOSINOPHILS ABSOLUTE AUTO 0.38 K/mm3 (0.00-0.68); EOSINOPHILS PERCENT AUTO 3 % (0-6); Hematocrit 39.4 % (33.0-51.0); Hemoglobin 12.5 g/dL (11.5-16.0); IMMATURE GRAN ABSOLUTE AUTO 0.09 K/mm3 (0.00-0.10); IMMATURE GRAN PERCENT AUTO 1 % (0-1); LYMPHOCYTES ABSOLUTE AUTO 1.48 K/mm3 (0.84-5.20); LYMPHOCYTES PERCENT AUTO 11 % (21-46); MONOCYTES ABSOLUTE AUTO 1.04 K/mm3 (0.16-1.47); MONOCYTES PERCENT AUTO 8 % (4-13); Mean Corpuscular HGB Conc 31.7 g/dL (31.5-36.5); Mean Corpuscular Volume 95 fL (80-100); Mean Platelet Volume 10.1 fL (9.1-12.4); NEUTROPHILS ABSOLUTE AUTO 10.42 K/mm3 (1.96-9.15); NEUTROPHILS PERCENT AUTO 77 % (41-73); Platelet Count 548 K/mm3 (150-400); RDW Coefficient Variation 14.5 % (11.7-14.2); RDW Standard Deviation 50.3 fL (35.1-46.3); Red Blood Cell Count 4.16 M/mm3 (3.80-5.20); White Blood Cell Count 13.52 K/mm3 (4.00-11.30)
[2019-07-27 06:22] LABS: Alanine Aminotransfer (ALT/SGP 24 U/L (12-78); Albumin, Blood 2.4 g/dL (3.4-5.0); Albumin/Globulin Ratio 0.6 (0.8-1.8); Alk Phos 63 U/L (50-136); Anion Gap 7 mmol/L (6-16); Aspartate Aminotrans (AST/SGOT 17 U/L (12-37); Bilirubin, Total 0.3 mg/dL (0.1-1.0); Blood Urea Nitrogen 9 mg/dL (8-24); Bun/Creatinine Ratio 11.7 (12.0-20.0); CO2, Blood 28 mmol/L (21-32); Calcium, Blood 8.3 mg/dL (8.5-10.1); Chloride, Blood 103 mmol/L (98-108); Creatinine, Blood 0.77 mg/dL (0.40-1.00); Globulin, Blood 3.7 g/dL (2.2-4.0); Glomerular Filtration Rate >60 (60-); Glucose, Blood 108 mg/dL (70-99); Magnesium, Blood 1.8 mg/dL (1.6-2.4); Phosphorus, Blood 2.4 mg/dL (2.5-4.9); Sodium, Blood 138 mmol/L (136-145); Total Protein, Blood 6.1 g/dL (6.4-8.2)
[2019-07-27 06:30] LABS: Digoxin (Lanoxin) 0.72 ug/mL (0.80-2.00)
--- NOTE | 2019-07-27 06:41 | NUR ---
ASSUMED CARE OF PATIENT AT APPROXIMATELY 1905 FROM CLARICE Connors RN. PATIENT ALERT AND ORIENTED X4, ONE ASSIST TO BEDSIDE COMMODE. PATIENT HAS PAIN ON ARM SIDE OF HER BODY; GUARDS RIGHT ARM; MINIMAL USE; MEDICATED PER EMAR. PATIENT DENIES NUMBNESS, TINGLING, DIZZINESS AND NAUSEA. AFIB ON TELE W/ RATE OF 90-105; OXYGEN SATURATION ABOVE 90% ON 3LPM VIA NC. PATIENT REPORTS SHE TAKES ONE PILL AT A TIME OR SHE MAY VOMIT; NO VOMITING THIS SHIFT; PATIENT REPORTS FREQUENT BURPS, "BURP LIKE A PROJECT MANAGEMENT PROFESSOR". DR. EVAN MARTINEZ EARLY IN SHIFT; ORDERS RECIEVED FOR NPO AT 0600 FOR EGD AT 0830. PG NICOLAS S/L; NO DRAWING. PATIENT ONE ASSIST WITH TO BEDSIDE COMMODE. PATIENT NEEDS ASSISTANCE BRUSHING TEETH. EKG TO BE COMPLETED IN THE NEXT FEW MINUTES. PATIENT CURRENTLY RESTING IN BED; CALL LIGHT IN REACH; BED IN LOWEST POSISTION; BED ALARM ON; WILL CONTINUE TO MONITOR AND ASSESS UNTIL END OF SHIFT.
--- NOTE | 2019-07-27 08:00 | NUR ---
PT PLEASANT COOP TALKATIVE. STATES STILL TIRED. H/R IRREGULAR, NO MURMER NOTED. PER TELE: AFIB IN 90'S. LUNGS DIM BASES. SOB WITH EXERTION. RESP EASY, UNLABORED. ON 3L O2. BT X4 LAST BM YEST. VOIDS BSC 1 ASST. PENDING EGD THIS AM. NPO MIDNITE. EXPECT JAQUELINE AND CARDIOVERT MONDAY PER DR CHATMAN.
--- NOTE | 2019-07-27 08:13 | NUR ---
History, Chart, Medications and Allergies reviewed before start of procedure. Patient confirms NPO status and agrees with scheduled surgery. Pre-Op teaching done. Pt verbalizes understanding.
--- NOTE | 2019-07-27 10:42 | NUR ---
PATIENT BACK TO [facility] FOR PROCEDURE NOW, DUE TO DELAY IN OR. POWERGLIDE NOT FLUSHING WELL, SO LAUREL Mccormick RN IS ATTEMPTING NEW IV.
--- NOTE | 2019-07-27 11:01 | NUR ---
07/27/19 1101 Maeve Holland History, Chart, Medications and Allergies reviewed before start of procedure. MAC CASE WITH DR. CASTAÑEDA. SEE ANETHESIA RECORD FOR CARE.
--- NOTE | 2019-07-27 14:45 | NUR ---
1130 PT BACK FROM DAY SURG, EGD DONE. DID NOT NEED DILITATION. PT AWAKE, AND DOING WELL. VSS. ON 4L O2.
--- NOTE | 2019-07-27 17:20 | NUR ---
PT QUITE PLEASANT ALL DAY. STATES SLOWLY DOING BETTER. PLAN FOR TOMORROW IS NPO JUDY, DR CHATMAN TO DO JAQUELINE AND CONVERT IN AM 8AM. NO OTHER CONCERNS AT THIS TIME. BED IN LOW POSITION, CALL LITE IN REACH, CALLS APPROP
--- NOTE | 2019-07-27 23:30 | NUR ---
ASSUMED CARE OF PATIENT AT APPROXIMATELY 1910 FROM CLARICE Connors RN. PATIENT ALERT AND ORIENTED X4, ONE ASSIST TO BEDSIDE COMMODE. PATIENT GUARDS RIGHT ARM; MINIMAL USE. PATIENT DENIES PAIN, NUMBNESS, TINGLING, DIZZINESS AND NAUSEA. AFIB ON TELE W/ RATE OF 95-105; OXYGEN SATURATION ABOVE 90% ON 3LPM VIA NC. PATIENT REPORTS SHE TAKES ONE PILL AT A TIME OR SHE MAY VOMIT; NO VOMITING THIS SHIFT; EGD TODAY; NO INTERVENTIONS REPORTS. NPO AT MIDNIGHT FOR JAQUELINE IN AM. PG NICOLAS AND PIV R WRIST S/L; NOT DRAWING. PATIENT CURRENTLY RESTING IN BED; CALL LIGHT IN REACH; BED IN LOWEST POSISTION; BED ALARM ON; WILL CONTINUE TO MONITOR AND ASSESS UNTIL END OF SHIFT.
[2019-07-28 03:53] LABS: BASOPHILS PERCENT AUTO 1 % (0-2); EOSINOPHILS ABSOLUTE AUTO 0.31 K/mm3 (0.00-0.68); EOSINOPHILS PERCENT AUTO 3 % (0-6); Hemoglobin 11.2 g/dL (11.5-16.0); IMMATURE GRAN ABSOLUTE AUTO 0.09 K/mm3 (0.00-0.10); IMMATURE GRAN PERCENT AUTO 1 % (0-1); LYMPHOCYTES ABSOLUTE AUTO 1.33 K/mm3 (0.84-5.20); LYMPHOCYTES PERCENT AUTO 12 % (21-46); MONOCYTES ABSOLUTE AUTO 0.97 K/mm3 (0.16-1.47); MONOCYTES PERCENT AUTO 9 % (4-13); Mean Corpuscular HGB 29.9 pg (26.0-34.0); Mean Corpuscular Volume 93 fL (80-100); NEUTROPHILS ABSOLUTE AUTO 7.97 K/mm3 (1.96-9.15); NEUTROPHILS PERCENT AUTO 74 % (41-73); Platelet Count 480 K/mm3 (150-400); RDW Coefficient Variation 14.3 % (11.7-14.2); RDW Standard Deviation 49.4 fL (35.1-46.3); Red Blood Cell Count 3.75 M/mm3 (3.80-5.20); White Blood Cell Count 10.77 K/mm3 (4.00-11.30)
[2019-07-28 04:15] LABS: Anion Gap 6 mmol/L (6-16); Blood Urea Nitrogen 12 mg/dL (8-24); Bun/Creatinine Ratio 14.9 (12.0-20.0); CO2, Blood 29 mmol/L (21-32); Calcium, Blood 8.2 mg/dL (8.5-10.1); Chloride, Blood 103 mmol/L (98-108); Creatinine, Blood 0.81 mg/dL (0.40-1.00); Glomerular Filtration Rate >60 (60-); Glucose, Blood 107 mg/dL (70-99); Potassium, Blood 4.1 mmol/L (3.5-5.5); Sodium, Blood 138 mmol/L (136-145)
--- NOTE | 2019-07-28 06:42 | NUR ---
PATIENT SLEPT ABOUT EIGHT HOURS LAST NIGHT. NPO FOR JAQUELINE THIS MORNING. BEDBATH GIVEN. OXYGEN TITRATED DOWN TO 2LPM VIA NC. NO OTHER ACUTE CHANGES TO REPORT. WILL CONTINUE TO MONITOR AND ASSESS UNTIL END OF SHIFT.
--- NOTE | 2019-07-28 07:57 | NUR ---
JAQUELINE/ CARDIOVERSION ORDERS PER DR DAVIS TO SET UP FOR JAQUELINE WITH POSSIBLE CARDIOVERSION. CLINICAL CYTOPATHOLOGIST IN ROOM PREPING PT. RT NOTIFIED. MED AND REVERSALS SET UP AT BEDSIDE. BASELINE VS AT 08:04 AFIB AT 77 BP 135/79 SP02 94 ON 2.5L O2 VIA NC, RESP 20. ZOLL IN ROOM, PADS PLACED ON PT. DR DAVIS IN ROOM AT 08:04, CONSENT VERIFIED WITH PT. RT ROBBIN EVERARDO IN RM, BAG AND SUCTION SET UP. START TIME:812 TIME OUT: 812 0814- VERSED 1MG AND FENTANYL 25MCG IV GIVEN. 0815- BP-155/90, HR-105, BIOX-97% ON 2.5L NC, R-18. JAQUELINE IN PROGRESS, PROBE ADVANCED. PT BEST WELL, NO DISTRESS. 0820- BP- 93/74, HR- 90, BIOX-94 ON 2.5L O2, R- 24. 0825- BP- 109/72, HR- 95, BIOX- 95% ON 2.5L. JAQUELINE COMPLETE, PROBE REMOVED. DR DAVIS STATES NO CLOTS, WILL PROCEED WITH CARDIOVERSION. 0826- VERSED 1MG AND 25MCG IV GIVEN 0828- 100J SHOCK DELIVERED, BP- 109/65, HR- 92, 95% ON 2.5L O2, R- 25. SOME INITIAL SINUS BEATS THEN BACK TO AFIB, DR. DAVIS ORDERED AMIODARONE 150MG IV BOLUS. KRISTI, PHARMACY NOTIFIED. 0830- SECOND 100J SHOCK DELIVERED. BP- 115/69, HR- 100, 94% ON 2.5L O2, R-25. SOME INITIAL SINUS BEATS WITH PT RETURNING TO AFIB AGAIN. 0835- AMIODARONE IVPB STARTED, BP-94/61, HR-87, BIOX-93% ON 2.5L O2, R-18 0840- PT RESTING WHILE AMIODARONE INFUSING. 0847- AMIODARONE INFUSION COMPLETE. BP-96/58, HR-87, BIOX-89% ON 2.5L O2, TURNED UP TO 3L. 0848- VERSED 1MG AND FENTANYL 25MCG IV GIVEN. 0849- 100J SHOCK DELIVERED. PT STILL IN AFIB. DR DAVIS STATES PROCEDURE COMPLETE. PT WILL RESPOND WITH STIMULOUS BUT RETURNS TO SLEEPING RIGHT AFTER. 0850- BP-111/74, HR-85, BIOX-DROPPING INTO LOW 80'S, O2 TURNED UP TO 5L, R-24 0855- BP-109/68, HR-93, BIOX 93% ON 5L O2,R-18. PT RESTING WITHOUT S/S OF DISTRESS. WILL CONTINUE TO MONITOR 1:1 FOR RECEOVERY
--- NOTE | 2019-07-28 19:58 | NUR ---
SHIFT SUMMARY PT A&Ox3, ANXIOUS AT TIMES, COOPERTIVE WITH CARE. UP IN CHAIR FOR MEALS AND SBA WITH WALKER TO BATHROOM. PT REPORTS PAIN IN RIGHT ARM, DENIES NEEDS FOR PAIN MEDICATIONS. SOB WITH EXERTION, STARTED ON 2L O2 VIA NC, TITRATED UP DURING JAQUELINE/CARDIOVERSION TO 5L O2 VIA NC AND TITRATED TO 3L VIA NC, SPO2 >92% AFTER CARDIOVERSION. JAQUELINE/CARDIOVERSION COMPLETED THIS AM, PT CONTINUES TO BE IN AFIB PER TELE. PT DENIES [place], REPORTS CONSTANT BELCHING, POOR APPETITE. PT RECEIVNG IV ANTIBIOTICS. PLANS FOR THORACENTEIS TOMORROW, DR MITCHELL HELD LOVENOX AND XARELTO UNTIL AFTER PROCEDURE. VSS. NO OTHER ACUTE CHANGES NOTED. REPORT GIVEN TO ONCOMING RN.
--- NOTE | 2019-07-28 23:52 | NUR ---
ASSUMED CARE OF PATIENT AT APPROXIMATELY 1915 FROM BRENTON Topete RN. PATIENT ALERT AND ORIENTED X4, ONE ASSIST TO BATHROOM. PATIENT GUARDS RIGHT ARM. PATIENT DENIES PAIN, NUMBNESS, TINGLING, DIZZINESS AND NAUSEA. AFIB ON TELE W/ RATE OF 95-105; OXYGEN SATURATION ABOVE 90% ON 3LPM VIA NC. PATIENT REPORTS SHE TAKES ONE PILL AT A TIME. JAQUELINE/CARDIOVERSION TODAY; DID NO CONVERT. NPO AT MIDNIGHT FOR POSS THORACENTESIS IN AM. PG NICOLAS AND PIV R WRIST S/L; NOT DRAWING. PATIENT CURRENTLY RESTING IN BED; CALL LIGHT IN REACH; BED IN LOWEST POSISTION; BED ALARM ON; WILL CONTINUE TO MONITOR AND ASSESS UNTIL END OF SHIFT.
[2019-07-29 04:41] LABS: BASOPHILS ABSOLUTE AUTO 0.11 K/mm3 (0.00-0.23); BASOPHILS PERCENT AUTO 1 % (0-2); EOSINOPHILS ABSOLUTE AUTO 0.37 K/mm3 (0.00-0.68); EOSINOPHILS PERCENT AUTO 4 % (0-6); Hematocrit 38.1 % (33.0-51.0); Hemoglobin 12.2 g/dL (11.5-16.0); IMMATURE GRAN PERCENT AUTO 1 % (0-1); LYMPHOCYTES ABSOLUTE AUTO 1.64 K/mm3 (0.84-5.20); LYMPHOCYTES PERCENT AUTO 15 % (21-46); MONOCYTES PERCENT AUTO 8 % (4-13); Mean Corpuscular HGB 29.9 pg (26.0-34.0); Mean Corpuscular Volume 93 fL (80-100); Mean Platelet Volume 9.9 fL (9.1-12.4); NEUTROPHILS ABSOLUTE AUTO 7.55 K/mm3 (1.96-9.15); NEUTROPHILS PERCENT AUTO 71 % (41-73); Platelet Count 451 K/mm3 (150-400); RDW Coefficient Variation 14.6 % (11.7-14.2); RDW Standard Deviation 49.5 fL (35.1-46.3); Red Blood Cell Count 4.08 M/mm3 (3.80-5.20); White Blood Cell Count 10.67 K/mm3 (4.00-11.30)
[2019-07-29 05:04] LABS: Alanine Aminotransfer (ALT/SGP 21 U/L (12-78); Albumin, Blood 2.1 g/dL (3.4-5.0); Albumin/Globulin Ratio 0.6 (0.8-1.8); Alk Phos 52 U/L (50-136); Anion Gap 5 mmol/L (6-16); Aspartate Aminotrans (AST/SGOT 22 U/L (12-37); Bilirubin, Total 0.3 mg/dL (0.1-1.0); Blood Urea Nitrogen 12 mg/dL (8-24); CO2, Blood 28 mmol/L (21-32); Calcium, Blood 8.1 mg/dL (8.5-10.1); Chloride, Blood 104 mmol/L (98-108); Creatinine, Blood 0.75 mg/dL (0.40-1.00); Globulin, Blood 3.3 g/dL (2.2-4.0); Glomerular Filtration Rate >60 (60-); Glucose, Blood 106 mg/dL (70-99); Potassium, Blood 4.2 mmol/L (3.5-5.5); Sodium, Blood 137 mmol/L (136-145); Total Protein, Blood 5.4 g/dL (6.4-8.2)
--- NOTE | 2019-07-29 06:46 | NUR ---
PATIENT SLEPT ABOUT EIGHT HOURS LAST NIGHT. ASKED FOR COUGH DROPS; CALLED DR. GAVIRIA; ORDERS RECIEVED. VSS. WILL CONTINUE TO MONITOR AND ASSESS UNTIL END OF SHIFT.
--- NOTE | 2019-07-29 10:43 | NUR ---
PT TAKEN FOR THORACENTESIS. WILL AWAIT RETURN.
--- NOTE | 2019-07-29 12:30 | NUR ---
PT RETURNED. VS STABLE. O2 SATS REMAIN ABOVE 90% ON RA. PT DENIES ANY PAIN. WILL CONTINUE TO MONITOR CLOSELY. PT SITTING UP EATING LUNCH.
--- NOTE | 2019-07-29 17:14 | NUR ---
SHIFT SUMMARY PT ALERT AND ORIENTED. VS STABLE. O2 SATS REMAIN ABOVE 90% ON RA. PT HAS BEEN TOLERATING ROOM AIR WITH ACTIVITY WELL. BP STABLE. HR AFIB 90-110'S. PT ABLE TO AMBULATE TO BATHROOM NEEDED WITH SBA. PT COMPLAINS OF CHRONIC PAIN IN HER RIGHT SHOULDER THAT IS TOLERABLE AT THIS TIME. PT HAD THORACENTESIS TODAY AND TOLERATED WELL. PER REPORT 500ML WAS REMOVED. PER DR. WICK, PT TO BE DISCHARGED THIS EVENING. WILL AWAIT DC ORDERS. PT AWARE.
[2019-07-29] MEDS ORDERED: FURO20 PO (17:48)
[2019-07-29] MEDS ORDERED: LIDO700A20 TOP (17:48)
[2019-07-29] MEDS ORDERED: Amiodarone HCl200 MG PO (17:51)
== END 2019-07-29 19:05 | disposition home or self-care (01) | DRG 177 ==
LOC: ER 17:45 → MEDS 07-18 02:30 → PCU 07-18 02:52 → MEDS 07-18 02:53 → PCU 07-23 11:30
PROVIDERS: Emergency Medicine; Family Medicine; Hospitalist; Internal Medicine Cardiovascular Disease; Internal Medicine Critical Care Medicine; Internal Medicine Gastroenterology; Nurse Practitioner Acute Care; Student in an Organized Health Care Education/Training Program; ADMIT Internal Medicine
PROC: 0W993ZX Drainage of Right Pleural Cavity, Percutaneous Approach, Diagnostic (ICD-10-PCS; 2019-07-20)
PROC: 0DJ08ZZ Inspection of Upper Intestinal Tract, Via Natural or Artificial Opening Endoscopic (ICD-10-PCS; principal; 2019-07-27 08:30)
PROC: B245ZZZ Ultrasonography of Left Heart (ICD-10-PCS; 2019-07-28)
PROC: 0W9B3ZX Drainage of Left Pleural Cavity, Percutaneous Approach, Diagnostic (ICD-10-PCS; 2019-07-28)
DX: J69.0 Pneumonitis due to inhalation of food and vomit (principal); J96.01 Acute respiratory failure with hypoxia; I50.33 Acute on chronic diastolic (congestive) heart failure; J91.8 Pleural effusion in other conditions classified elsewhere; I48.20 Chronic atrial fibrillation, unspecified; K44.9 Diaphragmatic hernia without obstruction or gangrene; I11.0 Hypertensive heart disease with heart failure; M62.81 Muscle weakness (generalized); G25.0 Essential tremor; R13.10 Dysphagia, unspecified; K22.70 Barrett's esophagus without dysplasia; K21.9 Gastro-esophageal reflux disease without esophagitis; G47.33 Obstructive sleep apnea (adult) (pediatric)
CPT/HCPCS: 32555; 36415; 71045; 71046; 71260; 74230; 80048; 80053; 80162; 82042; 82945; 83605; 83615; 83735; 83880; 83986; 84100; 84145; 84155; 84157; 84443; 84450; 84460; 84484; 85025; 85610; 87040; 87070; 87205; 88108; 89051; 92611; 93005; 93010; 93308; 93312; 93321; 93325; 94761; 96365-59; 96367; 96375-59; 97110; 97162; 97530; 99285-25; A9270; C1751; J0282; J0456; J0696; J1160; J1650; J1940; J2001; J2250; J2310; J2405; J2704; J3010; J3480; J7030; J7050; J7060; J7120; Q9967

== ENCOUNTER 2019-09-11 12:46 | Inpatient (IN) | payer MEDICARE ==
[~2019-09-11] VITALS: Ht 154.9 cm; Wt 67.4 kg
[~2019-09-11 12:46] MED LIST changes: +B Complex-Foli1 EACH PO; +COMPLETE PO; +LIDO700A20 TOP; -OMEPRAZOLE20 MG PO; -THERA1 EACH PO; -XARELTO20 MG PO
[2019-09-11 13:41] LABS: BASOPHILS ABSOLUTE AUTO 0.06 K/mm3 (0.00-0.23); BASOPHILS PERCENT AUTO 0 % (0-2); EOSINOPHILS ABSOLUTE AUTO 0.01 K/mm3 (0.00-0.68); EOSINOPHILS PERCENT AUTO 0 % (0-6); Hematocrit 34.2 % (33.0-51.0); Hemoglobin 11.1 g/dL (11.5-16.0); IMMATURE GRAN PERCENT AUTO 1 % (0-1); LYMPHOCYTES ABSOLUTE AUTO 1.42 K/mm3 (0.84-5.20); LYMPHOCYTES PERCENT AUTO 10 % (21-46); MONOCYTES ABSOLUTE AUTO 1.41 K/mm3 (0.16-1.47); MONOCYTES PERCENT AUTO 10 % (4-13); Mean Corpuscular HGB 30.2 pg (26.0-34.0); Mean Corpuscular HGB Conc 32.5 g/dL (31.5-36.5); Mean Corpuscular Volume 93 fL (80-100); Mean Platelet Volume 10.4 fL (9.1-12.4); NEUTROPHILS ABSOLUTE AUTO 11.25 K/mm3 (1.96-9.15); NEUTROPHILS PERCENT AUTO 79 % (41-73); Platelet Count 434 K/mm3 (150-400); RDW Coefficient Variation 14.7 % (11.7-14.2); RDW Standard Deviation 50.6 fL (35.1-46.3); Red Blood Cell Count 3.68 M/mm3 (3.80-5.20); White Blood Cell Count 14.25 K/mm3 (4.00-11.30)
[2019-09-11 13:54] LABS: Magnesium, Blood 1.8 mg/dL (1.6-2.4); Troponin I <0.015 ng/mL (0.000-0.040)
[2019-09-11 13:55] LABS: Alanine Aminotransfer (ALT/SGP 67 U/L (12-78); Albumin/Globulin Ratio 0.7 (0.8-1.8); Alk Phos 95 U/L (50-136); Anion Gap 9 mmol/L (6-16); Aspartate Aminotrans (AST/SGOT 43 U/L (12-37); Bilirubin, Total 0.8 mg/dL (0.1-1.0); Blood Urea Nitrogen 19 mg/dL (8-24); Bun/Creatinine Ratio 19.4 (12.0-20.0); CO2, Blood 25 mmol/L (21-32); Calcium, Blood 8.7 mg/dL (8.5-10.1); Chloride, Blood 95 mmol/L (98-108); Creatinine, Blood 0.98 mg/dL (0.40-1.00); Globulin, Blood 4.2 g/dL (2.2-4.0); Glomerular Filtration Rate 58 (60-); Glucose, Blood 135 mg/dL (70-99); Potassium, Blood 4.3 mmol/L (3.5-5.5); Sodium, Blood 129 mmol/L (136-145); Total Protein, Blood 7.2 g/dL (6.4-8.2)
[2019-09-11] MEDS ORDERED: POTASSIUM CHLO20 ME1 PO (15:57)
[2019-09-11] MEDS ORDERED: XARELTO20 MG PO (15:58)
[2019-09-11] MEDS ORDERED: FURO40 PO (15:58)
[2019-09-11] MEDS ORDERED: METO50ER PO (16:00)
[2019-09-11] MEDS ORDERED: OMEPRAZOLE20 MG PO (16:00)
[2019-09-11] MEDS ORDERED: Amiodarone HCl200 MG PO (16:01)
[2019-09-11] MEDS ORDERED: THERA-D2000 UNIT PO (16:03)
[2019-09-11] MEDS ORDERED: ASCO500 PO (16:04)
[2019-09-11] MEDS ORDERED: THERA1 EACH PO (16:30)
--- NOTE | 2019-09-12 04:56 | NUR ---
SHIFT SUMMARY: PATIENT C/O DISCOMFORT FROM SLEEPING IN HOSPITAL BED BUT REFUSED TYLENOL, LIDOCAIN PATCH PLACED ON UPPER BACK PER MD ORDER. ADMISSION COMPLETED, PATIENT ORIENTED TO ROOM, CALL LIGHT AND HOSPITAL POLICIES. VSS, CALL LIGHT WITHIN REACH, BED LOW AND LOCKED.
[2019-09-12 05:39] LABS: BASOPHILS ABSOLUTE AUTO 0.07 K/mm3 (0.00-0.23); BASOPHILS PERCENT AUTO 1 % (0-2); EOSINOPHILS ABSOLUTE AUTO 0.11 K/mm3 (0.00-0.68); EOSINOPHILS PERCENT AUTO 1 % (0-6); Hematocrit 33.4 % (33.0-51.0); Hemoglobin 10.9 g/dL (11.5-16.0); IMMATURE GRAN ABSOLUTE AUTO 0.12 K/mm3 (0.00-0.10); IMMATURE GRAN PERCENT AUTO 1 % (0-1); LYMPHOCYTES ABSOLUTE AUTO 1.84 K/mm3 (0.84-5.20); LYMPHOCYTES PERCENT AUTO 13 % (21-46); MONOCYTES ABSOLUTE AUTO 1.35 K/mm3 (0.16-1.47); MONOCYTES PERCENT AUTO 10 % (4-13); Mean Corpuscular HGB 30.1 pg (26.0-34.0); Mean Corpuscular HGB Conc 32.6 g/dL (31.5-36.5); Mean Corpuscular Volume 92 fL (80-100); Mean Platelet Volume 10.1 fL (9.1-12.4); NEUTROPHILS ABSOLUTE AUTO 10.64 K/mm3 (1.96-9.15); NEUTROPHILS PERCENT AUTO 75 % (41-73); Platelet Count 463 K/mm3 (150-400); RDW Coefficient Variation 14.7 % (11.7-14.2); RDW Standard Deviation 50.3 fL (35.1-46.3); Red Blood Cell Count 3.62 M/mm3 (3.80-5.20); White Blood Cell Count 14.13 K/mm3 (4.00-11.30)
[2019-09-12 05:58] LABS: Alanine Aminotransfer (ALT/SGP 54 U/L (12-78); Albumin, Blood 2.8 g/dL (3.4-5.0); Albumin/Globulin Ratio 0.7 (0.8-1.8); Alk Phos 90 U/L (50-136); Anion Gap 7 mmol/L (6-16); Aspartate Aminotrans (AST/SGOT 28 U/L (12-37); Bilirubin, Total 0.6 mg/dL (0.1-1.0); Blood Urea Nitrogen 15 mg/dL (8-24); CO2, Blood 25 mmol/L (21-32); Calcium, Blood 8.4 mg/dL (8.5-10.1); Chloride, Blood 99 mmol/L (98-108); Creatinine, Blood 0.83 mg/dL (0.40-1.00); Globulin, Blood 3.9 g/dL (2.2-4.0); Glomerular Filtration Rate >60 (60-); Glucose, Blood 124 mg/dL (70-99); Potassium, Blood 4.4 mmol/L (3.5-5.5); Sodium, Blood 131 mmol/L (136-145); Total Protein, Blood 6.7 g/dL (6.4-8.2)
--- NOTE | 2019-09-12 08:00 | NUR ---
PT PLEASANT COOP, A/O. DENIES PAIN AT THIS TIME. PT HAS ESSENTIAL TREMORS AT BASELINE. PT STATES SOB WITH EXERTION. H/R REG, NO MURMER NOTED. PER TELE CONVERTED FROM AFIB TO NSR AT 85 ABOUT 0740 THIS AM. LUNGS CLEAR RESP EASY, UNALBORED. ON 2L O2 AT THIS TIME. BT X4 LAST BM YEST. PT STATES ABD TENDER MID UPPER. HX GERD. STATES NOT UNUSUAL. VOIDS BSC 1 ASST. BED IN LOW POSITION, CALL LITE IN REACH, CALLS APPROP
--- NOTE | 2019-09-12 09:37 | NUR ---
dr arroyo, manufacturing team member, called. pt has large pericardial effusion, needs drained. high risk of tamponaide. hold xarelto. gave msg to dr early to call dr arroyo. dr arroyo okayed to go xray at this time.
--- NOTE | 2019-09-12 09:57 | NUR ---
dr veloz moving pt to icu when room avail. re pericardial effusion
--- NOTE | 2019-09-12 10:46 | NUR ---
MOVED TO ICU ROOM 6, CALLED REPORT TO AMADOR SALDIVAR RN. 10:20
--- NOTE | 2019-09-12 11:36 | NUR ---
ARRIVAL TO ICU 1025 - PT ARRIVES TO ICU AT THIS TIME FROM PCU. SHE IS A/O X 3, BUT IS TEARFUL. LUNG SOUNDS CLEAR. SPO2 97% ON 2L NC. DENIES CHEST PAIN AT THIS TIME. COMPLETE BEDBATH AND LINEN CHANGE PROVIDED. NS MIV INFUSING AT 75 ML/HR PER ORDER. AFEBRILE. SITTING UP IN BED. FAMILY EDUCATED ON WHY PT IS HERE AND PLAN TO MONITOR AT THIS TIME. CALL LIGHT WITHIN REACH. WILL CONTINUE TO MONITOR.
--- NOTE | 2019-09-12 13:32 | NUR ---
Called in to provide spiritual direction and prayer to Autumn. she responded well to my interventions. We had an easy rapport. I will remain available.
--- NOTE | 2019-09-12 17:48 | NUR ---
SHIFT SUMMARY PT IN BED ENTIRE SHIFT. SLEPT THIS AFTERNOON. NO CHEST PAIN ENTIRE SHIFT. C/O GENERALIZED ACHES ALONG WITH TOOTHACHE SHE HAS HAD FOR 1 WEEK PER PT; TYLENOL ELIXIR GIVEN AND PAIN IMPROVED. PT DOES HAVE DYSPNEA WITH EXERTION BUT LUNG SOUNDS CLEAR THROUGHOUT. BP HAVE MAINTAINED A CONSISTENT TREND ENTIRE SHIFT WITHOUT A NARROWED PULSE PRESSURE. HAS REMAINED IN NSR, HR 70-90S. NS INFUSING AT TKO. PT HAD LONG CONVERSATION WITH PALLIATIVE CARE. WILL GIVE BEDSIDE, HANDOFF REPORT TO RANULFO RN.
--- NOTE | 2019-09-12 20:00 | NUR ---
ASSUMED CARE OF PT AT 1915. REPORT RECEIVED AT BEDSIDE. PT PRESENTS IN BED WITH MULTIPLE GUESTS AT BEDSIDE. PT IN NO APPARENT DISTRESS. DENIES COMPLAINTS OF CHEST PAIN OR PRESSURE. DOES HAVE CHRONIC HISTORY NECK PAIN. ALSO HAS ORAL PAIN WHICH PT STATES SHE WAS ATTEMPTING TO GET DENTIST APPOINTMENT PRIOR TO HAVING TO COME TO HOSPITAL. VSS NORMAL. APPROPRIATE PULSE PRESSURE. NO ECTOPY. WILL CONTINUE TO MONITOR. NO CARDIAC RUB NOTED. WILL REVIEW CHART AND PLAN OF CARE FOR THIS PT.
[2019-09-12] MEDS ORDERED: PROBIOTIC1 EACH PO (22:06)
--- NOTE | 2019-09-12 22:19 | NUR ---
GUESTS HAVE GONE HOME FOR THE NIGHT. PT REQUESTS WRITTEN INFORMATION ON PERICARDIAL EFFUSION AND PROPOSED PROCEDURE. THIS HAS BEEN PROVIDED TO PT. ALLOWED FOR QUESTIONS. PT MEDICATED WITH LIQUID TYLENOL FOR ORAL PAIN, AND FOR HER CHRONIC NECK PAIN.
--- NOTE | 2019-09-13 02:53 | NUR ---
PT HAS REMAINED WITHOUT COMPLAINTS OF CHEST PAIN OR PRESSURE. HAS STATED THAT SHE OFTEN AWAKENS AT NIGHT APPROXIMATELY EVERY HOUR SECONDARY TO CHRONIC PAIN ISSUES. PT HAS CALLED APPROPRIATELY FOR ASSIST WITH VOIDING. WILL CONTINUE TO MONITOR PT.
[2019-09-13 03:46] LABS: BASOPHILS ABSOLUTE AUTO 0.08 K/mm3 (0.00-0.23); BASOPHILS PERCENT AUTO 1 % (0-2); EOSINOPHILS ABSOLUTE AUTO 0.44 K/mm3 (0.00-0.68); EOSINOPHILS PERCENT AUTO 4 % (0-6); Hematocrit 31.9 % (33.0-51.0); Hemoglobin 10.3 g/dL (11.5-16.0); IMMATURE GRAN ABSOLUTE AUTO 0.09 K/mm3 (0.00-0.10); IMMATURE GRAN PERCENT AUTO 1 % (0-1); LYMPHOCYTES ABSOLUTE AUTO 1.45 K/mm3 (0.84-5.20); LYMPHOCYTES PERCENT AUTO 13 % (21-46); MONOCYTES ABSOLUTE AUTO 1.18 K/mm3 (0.16-1.47); MONOCYTES PERCENT AUTO 10 % (4-13); Mean Corpuscular HGB 29.8 pg (26.0-34.0); Mean Corpuscular HGB Conc 32.3 g/dL (31.5-36.5); Mean Corpuscular Volume 92 fL (80-100); Mean Platelet Volume 10.3 fL (9.1-12.4); NEUTROPHILS ABSOLUTE AUTO 8.07 K/mm3 (1.96-9.15); NEUTROPHILS PERCENT AUTO 71 % (41-73); Platelet Count 442 K/mm3 (150-400); RDW Coefficient Variation 14.8 % (11.7-14.2); RDW Standard Deviation 50.2 fL (35.1-46.3); Red Blood Cell Count 3.46 M/mm3 (3.80-5.20); White Blood Cell Count 11.31 K/mm3 (4.00-11.30)
[2019-09-13 04:02] LABS: Anion Gap 6 mmol/L (6-16); Blood Urea Nitrogen 15 mg/dL (8-24); Bun/Creatinine Ratio 19.5 (12.0-20.0); CO2, Blood 27 mmol/L (21-32); Calcium, Blood 8.4 mg/dL (8.5-10.1); Chloride, Blood 103 mmol/L (98-108); Creatinine, Blood 0.77 mg/dL (0.40-1.00); Glomerular Filtration Rate >60 (60-); Glucose, Blood 107 mg/dL (70-99); International Normalized Ratio 1.14; Potassium, Blood 4.2 mmol/L (3.5-5.5); Prothrombin Time Results 11.9 Sec (9.7-11.5); Sodium, Blood 136 mmol/L (136-145)
--- NOTE | 2019-09-13 06:13 | NUR ---
PT BECOMES VERY ANXIOUS WHEN HAVING TO USE BEDPAN THIS AM. NEEDS TO BE REDIRECTED, AND TEACHING OF RELAXATION TECHNIQUES. PT DOES REDIRECTED WELL. CONTINUES ON 2 L/M OXYGEN. NO CHEST PAIN OR PRESSURE. DID ADMINSITER TYLENOL AGAIN THIS AM SECONDARY TO HER RIGHT ARM/SHOULDER CHRONIC PAIN AND ORAL PAIN. PENDING RESULTS. WILL CONTINUE TO MONITOR PT, AND WILL REPORT OFF TO ONCOMING RN.
--- NOTE | 2019-09-13 08:00 | NUR ---
ASSUMED CARE NOTE: ASSUMED CARE OF PT AT 0700, RECEVIED REPORT FROM JUSTUS MEJÍA. PT IS ALERT AND ORIENTED. PT ON 2L OF O2 VIA NC WITH SPO2 ABOVE 90%. PT C/O LOWER BACK PAIN, REPOSITIONED PT TO ALLEVIATE DISCOMFORT. PT REMAINS NPO UNTIL AFTER PERICARDIOCENTESIS. PT ANXIOUS ABOUT USING THE BEDPAN. BED AT LOWEST LEVEL, CALL LIGHT WITHIN REACH. WILL CONTINUE TO MONITOR T/O SHIFT.
[2019-09-13 10:10] LABS: Antinuclear Antibody Screen Positive (Negative)
--- NOTE | 2019-09-13 15:30 | NUR ---
UPDATE: PT CAME BACK FROM [facility] ON WITH SPO2 MAINTANING ABOVE 90% PT IS NOW IN AFIB WITH HR AVERAGING IN THE LOW 100'S. IS AWARE, WILL HOLD ALL ANTICOAGULANT UNTIL PIGTAIL IS OUT. FAMILY AT BEDSIDE, CALL LIGHT WITHIN REACH REACH. WILL CONTINUE TO MONITOR PT.
[2019-09-13 16:30] LABS: Albumin, Body Fluid 2.5 g/dL; Body Fluid WBC Count 110 /mm3 (0-999); Glucose, Body Fluid 105 mg/dL; Lactate Dehydrogenase, Body Fl 157 U/L; Protein, Body Fluid 5.1 g/dL; RBC Count, Body Fluid 4095 /mm3 (0-0)
[2019-09-13 16:33] LABS: Appearance, Body Fluid Clear (Clear); Color, Body Fluid Yellow (None-Yellow)
[2019-09-13 17:04] LABS: Total Cell Count, Body Fluid 100
--- NOTE | 2019-09-13 18:19 | NUR ---
SHIFT SUMMARY: PT REMAINS ALERT AND ORIENTED. PT ON RA WITH SPO2 ABOVE 90%. PT C/O RUQ PAIN, PT STATES IT IS LIKE PAIN SHE EXPERIENCES AT HOME (GAS PAINS). PT RECEVIED HER FIRST MEAL OF THE DAY THIS EVENING WITH AGGRAVATED HER PAIN. PT NOW LYING ON LEFT SIDE. PT DENIES ANY SOB, OR MIDSTERNAL CHEST PAIN. PIGTAIL CATH IN PLACE, NO ACTIVE BLEEDING AT SITE, DRAINING SEROUS/SEROSANGUINOUS FLUID. PT IN AFIB WITH HR AVERAGING IN THE 110'S. WILL CONTINUE TO MONITOR PT UNTIL REPORT IS GIVEN TO ONCOMING SHIFT.
--- NOTE | 2019-09-13 20:30 | NUR ---
ASSUMPTION OF CARE: PT A& O. APPEARS ANXIOUS, SOB ON EXERTION. ON 2L NC. SP02 >90%. IN A-FIB WITH RVR. HR IN THE 110S-120S. CURRENTLY VOIDING ON BEDPAN BUT WILL ATTEMPT TO GET PT UP TO BEDSIDE COMMODE. SKIN IS WITHIN NORMAL LIMITS, C/D/I. 22G IN L HAND INFUSING WITH NL AT 75 ML/HR. PIGTAIL DRAIN OPENED BY DAYSHIFT, 0UTPUT. PT DOES COMPLAIN OF L ARM PAIN THAT IS CHRONIC AND L SIDED CHEST PAIN THAT IS ALSO CHRONIC AND BELIEVES IT IS RELATED TO GERD/GAS. PT BELCHES FREQUENTLY.
--- NOTE | 2019-09-13 23:54 | NUR ---
PERICARDIAL PIGTAIL DRAIN OPEN TO DRAIN BY GRAVITY. ZERO OUTPUT.
--- NOTE | 2019-09-14 05:49 | NUR ---
SHIFT SUMMARY: PT ALERT AND ORIENTED. ANXIOUS. LIMITED ROM TO R ARM-PT REPORTS ITS "BONE ON BONE". PT HAS BEEN ON RA MAJORITY OF SHIFT. HOWEVER PT IS CURRENTLY ON 2L NC AFTER A DE-SAT EPISODE. CURRENTLY SP02 IS AT 96%. AT BEGINNING OF SHIFT PT WAS IN A-FIB WITH RVR. PT IS CURRENTLY IN SR WITH HR IN THE 60-70S AND SBP RANGING FROM 90S-110S. GI IS WNL, BT X 4. PT IS ABLE TO STAND TO BEDSIDE COMMODE WITH 1 PERSON ASSIST AND WALKER. SKIN C/D/I. 22G IV IN L HAND INFUSING WITH NS AT 75 ML/HR. PT HAS COMPLAINED OF PERSISTANT L SIDED CHEST PAIN THAT SHE BELIEVES IS DUE TO GAS. WHILE PT IS AWAKE SHE BELCHES CONSTANTLY. PT HAS MID-CHEST PERICARDIAL DRAIN S/P PERICARDIOCENTESIS. MINIMAL BLOODY DRAINAGE AT INSERTION SITE THAT HAS NOT CHANGED THROUGHOUT SHIFT. PIGTAIL OPENED Q4H TO ALLOW FOR DRAINAGE. NO DRAINAGE OUT DURING THIS SHIFT.
[2019-09-14 07:07] LABS: COMPLEMENT C3, SERUM 168 mg/dL (82-167); COMPLEMENT C4, SERUM 26 mg/dL (14-44)
--- NOTE | 2019-09-14 08:00 | NUR ---
ASUMMED CARE NOTE: ASSUMED CARE OF PT @ 0700, RECEVIED REPORT FROM PIERCE MEJÍA. PT A&OX4, PT DENIES ANY MIDSTERNAL CHEST PAIN. PT C/O LUQ PAIN " LIKE A RIB IS POKING INTO MY LUNG" SPO2 ABOVE 90%, NO SOB, PAIN DOES NOT WORSEN W/ INSPIRATORY/EXPIRATORY, PAIN DOES NOT RADIATE. PT IN AFIB WITH HR IN THE BETWEEN 100-[address]PM[address]ARDIAC PIGTAIL IN PLACE WITH SMALL AMOUNTS OF SEROUS FLUID. WILL CONTINUE TO MONITOR PT T/O SHIFT.
--- NOTE | 2019-09-14 17:53 | NUR ---
SHIFT SUMMARY: PT IS ON RA WITH SPO2 REMAINING ABOVE 90%. PT DENIES SOB/CP AT THIS TIME. PT HAS BEEN UP INTO THE CHAIR FOR EVERY MEAL WITH 1 PERSON FWW. PT IS CURRENTLY IN NSR WITH HR IN THE 70'S. PT HAS BEEN CONVERTING BACK/FORTH BETWEEN NSR AND AFIB. MIDCHEST CARDIAC PIGTAIL HAS BEEN OPEN TO GRAVITY Q4HR WITH MINIMAL YELLOW DRAINAGE, SITE DRY AND INTACT NO ACTIVE BLEEDING NOTED. PT HAS BEEN USING THE BSC VOIDING CLEAR YELLOW URINE. WILL CONTINUE TO MONITOR PT UNTIL REPORT IS GIVEN TO ONCOMING SHIFT.
--- NOTE | 2019-09-14 22:27 | NUR ---
ASSUMED PT CARE FROM KYM SAHA PT WAS SITTING UP IN RECLINER RECEIVING BED BATH TO GET PT READY FOR THE NIGHT. LINEN'S WERE CHANGED AND PT WAS ASSISTED BY AIDE TO COMMODE AND THEN BACK TO BED. UPON LATER ENTRY OF ROOM PT WAS VERY EMOTIONAL AND STATED SHE WANTED TO GO HOME. PT WOULD NOT ELABORATE ANY FURTHER TO WHY SHE WAS UPSET. HOWEVER, PT CHEERED UP SHORTLY AND WAS VERY GRATEFUL OF CARES. PERICARDIAL DRAIN STILL IN PLACE TO MID CHEST. DRAINAGE REMAINS THE SAME AMOUNT THAT WAS IN POST PLACEMENT; HOWEVER, WENT AHEAD AND DRAINED TO ENSURE NO FURTHER DRAINAGE AMOUNT WAS BEING COLLECTED. TOTAL OF 10CC OF YELLOW DRAINAGE EMPTIED FROM BAG. DRESSING REMAINS INTACT WITH NO FURTHER DRAINAGE NOTED; WILL CHANGE THIS SHIFT IT IS BECOMING LOOSE AROUND THE EDGES; HOWEVER, CHG IS STILL INTACT OVER INSERTION SITE. PT DENIES ANY CHEST PAIN AT THIS TIME. C/O RIGHT SHOULD PAIN THAT IS CHRONIC FOR PT. OFFERED COLD/HEAT AND PT DENIED STATING SHE USES HOME REMEDIES TO SOOTHE HER ACHING PAINS. VS REMAIN STABLE; SEE FLOWSHEET. CALL LIGHT LEFT WITHIN REACH; PT ABLE TO MAKE HER NEEDS KNOWN.
[2019-09-15 03:49] LABS: BASOPHILS PERCENT AUTO 1 % (0-2); EOSINOPHILS ABSOLUTE AUTO 0.73 K/mm3 (0.00-0.68); EOSINOPHILS PERCENT AUTO 6 % (0-6); Hematocrit 32.7 % (33.0-51.0); Hemoglobin 10.4 g/dL (11.5-16.0); IMMATURE GRAN ABSOLUTE AUTO 0.09 K/mm3 (0.00-0.10); IMMATURE GRAN PERCENT AUTO 1 % (0-1); LYMPHOCYTES ABSOLUTE AUTO 1.83 K/mm3 (0.84-5.20); LYMPHOCYTES PERCENT AUTO 15 % (21-46); MONOCYTES PERCENT AUTO 9 % (4-13); Mean Corpuscular HGB 29.6 pg (26.0-34.0); Mean Corpuscular HGB Conc 31.8 g/dL (31.5-36.5); Mean Corpuscular Volume 93 fL (80-100); Mean Platelet Volume 9.7 fL (9.1-12.4); NEUTROPHILS ABSOLUTE AUTO 8.23 K/mm3 (1.96-9.15); NEUTROPHILS PERCENT AUTO 68 % (41-73); Platelet Count 556 K/mm3 (150-400); RDW Coefficient Variation 14.9 % (11.7-14.2); RDW Standard Deviation 50.5 fL (35.1-46.3); Red Blood Cell Count 3.51 M/mm3 (3.80-5.20); White Blood Cell Count 12.08 K/mm3 (4.00-11.30)
[2019-09-15 04:04] LABS: Anion Gap 7 mmol/L (6-16); Blood Urea Nitrogen 15 mg/dL (8-24); Bun/Creatinine Ratio 18.1 (12.0-20.0); CO2, Blood 26 mmol/L (21-32); Calcium, Blood 8.1 mg/dL (8.5-10.1); Chloride, Blood 105 mmol/L (98-108); Creatinine, Blood 0.83 mg/dL (0.40-1.00); Glomerular Filtration Rate >60 (60-); Glucose, Blood 99 mg/dL (70-99); Potassium, Blood 4.7 mmol/L (3.5-5.5); Sodium, Blood 138 mmol/L (136-145)
--- NOTE | 2019-09-15 05:34 | NUR ---
END OF SHIFT SUMMARY NO SIGNIFICANT CHANGES SINCE LAST ENTRY. PT HAS REMAINED AWAKE MOST OF NIGHT. STATES SHE STRUGGLES TO SLEEP AT HOME WELL. DRESSING CHANGED TO PERICARDIAL DRAINAGE SITE DRESSING WAS SATURATED AND MOISTURE WAS COLLECTING UNDER DRESSING. STERILE TECHNIQUE WAS UTILIZED AND MAINTAINED T/O DRESSING CHANGE. SUTURES REMAIN INTACT AND UNDERLYING STABILIZATION DEVICE ALSO LEFT IN PLACE D/T NOT HAVING ANY ON UNIT; CHG DRESSING APPLIED AND APPEARS CDI. NO DRAINAGE FROM DRAIN ALL SHIFT. PT C/O 6/10 LUQ PAIN THAT WAS SHARP. STATES THIS IS NOT NEW AND REQUESTED PO TYLENOL. VSS; SEE FLOWSHEET. PT REMAINED NSR ALL SHIFT WITH HR 60'S. PT VERBALIZED CONCERN REGARDING HER BOWELS AND STATES SHE IS VERY REGULAR ON A DAILY BASIS AND IS CONCERNED THAT SHE HASN'T GONE IN TWO DAYS. EDUCATED ON POSSIBLE CAUSES AND THAT SHE HAS BEEN MORE IMMOBILE THAN NORMAL; THEREFORE, ENCOURAGED HER TO INTAKE MORE FLUIDS, WELL GET UP TO THE CHAIR TOLERATED T/O DAY. PT IS A ONE PERSON STANDBY ASSIST WITH VERBAL CUES AND WALKER REQUIRED FOR SAFETY. SHE HAS A BASELINE TREMOR THAT MAKES HER GAIT UNSTEADY AT TIMES. PT ALSO RAISED CONCERN REGARDING DISCHARGE AND HER MEDICATIONS. STATED SHE DIDN'T KNOW IF SHE WAS TO RESUME HER LASIX AND POTASSIUM, WELL HER XARELTO. INFORMED HER THOSE WERE QUESTIONS FOR THE PHYSICIANS, BUT THE NURSING STAFF CAN HELP FACILITATE THAT SHE STATES ALL THE STAFF AND DIFFERENT FACES BECOMES OVERWHELMING TO HER. PT ALSO REQUESTED THAT HER DISCHARGE PAPERWORK, WHEN THE TIME COMES, IS GONE OVER IN GREAT DETAIL SHE HAD MANY QUESTIONS ONCE SHE GOT HOME AFTER HER LAST STAY. REINFORCED THAT I WOULD PASS THAT ALONG IN REPORT. PT GRATEFUL FOR THE COMMUNICATION AND HER CARE. CALL LIGHT LEFT WITHIN REACH; PT ABLE TO MAKE HER NEEDS KNOWN. WILL CONTINUE TO MONITOR UNTIL REPORT IS HANDED OFF TO ONCOMING RN.
--- NOTE | 2019-09-15 08:00 | NUR ---
ASSUMED CARE NOTE: ASSUMED CARE OF PT @ 0700, RECEVIED REPORT FROM MONTSE MEJÍA. PT REMAINS A&OX4, PT IS ON RA WITH SPO2 ABOVE 90%. PT IN NSR WITH HR IN THE 70'S. PT DENIES CP OR SOB. MIDLINE CHEST PIGTAIL IN PLACE WITH NO DRAINAGE. PT USING BSC AND VOIDING CLEAR YELLOW URINE.
--- NOTE | 2019-09-15 10:15 | NUR ---
UPDATE: DR. SPENCER STOPPED BY AND DC'd THE CARDIAC PIGTAIL. MANUAL PRESSURE HELD FOR 10 MINUTES, INSERTION SITE COVERED WITH GAUZE AND TEGADERM. STATED FROM A CARDIAC STAND PT IS APPPROPRIATE FOR PCU STATUS.
--- NOTE | 2019-09-15 18:22 | NUR ---
PT C/O SOB, SPO2 96% ON RA. PT ASSISTED BACK TO BED, O2 PLACED AT 2L/NC, VSS. VISITORS AT BEDSIDE SMELL OF CIGARETTE SMOKE, THIS RN ASKED VISITORS TO SAY YAZMIN FOR THE EVENING, PATIENT AND VISITORS AGREEABLE.
--- NOTE | 2019-09-15 18:46 | NUR ---
SHIFT SUMMARY: CAME BY TO SEE PT DURING SHIFT AND ORDERED FOR PT TO RECEVIE A THORACENTESIS ON 09/16/19. XARELTO WILL BE HELD UNTIL AFTER PROCEDURE. PT IS NOW ON 2L OF NC DUE TO SOB REPORTED BY PT, SPO2 ABOVE 96%. PT DENIES CP. MIDCHEST PIGTAIL SITE IS C/D/I. PT HAS BEEN USING BEDSIDE COMMODE, VOIDING YELLOW CLEAR URINE. PT WAS ABLE TO HAVE A LG BM THIS SHIFT. PT IS CURRENTLY PCU STATUS. WILL CONTINUE TO MONITOR UNTIL REPORT IS GIVEN TO ONCOMING SHIFT. BED AT LOWEST LEVEL, CALL LIGHT WITHIN REACH.
[2019-09-16 04:30] LABS: Anion Gap 9 mmol/L (6-16); Blood Urea Nitrogen 9 mg/dL (8-24); Bun/Creatinine Ratio 11.9 (12.0-20.0); CO2, Blood 25 mmol/L (21-32); Calcium, Blood 8.2 mg/dL (8.5-10.1); Chloride, Blood 105 mmol/L (98-108); Creatinine, Blood 0.75 mg/dL (0.40-1.00); Glomerular Filtration Rate >60 (60-); Glucose, Blood 101 mg/dL (70-99); Potassium, Blood 4.3 mmol/L (3.5-5.5); Sodium, Blood 139 mmol/L (136-145)
--- NOTE | 2019-09-16 09:59 | NUR ---
CARE ASSUMED CARE AND REPORT ASSUMED FROM ELIZABET MEJÍA. PT SITTING IN CHAIR, A/O X 3. C/O BACK PAIN 12/23. IV SALINE LOCKED. LUNG SOUNDS CLEAR. CURRENTLY IN AFIB, HR 110-130S. ECHO AT BEDSIDE FOR REPEAT ECHO. WILL GIVE BEDBATH AND LINEN CHANGE. WILL CONTINUE TO MONITOR.
[2019-09-16 11:07] LABS: ANTI-DSDNA ANTIBODIES 1 IU/mL (0-9); RNP ANTIBODIES <0.2 AI (0.0-0.9); SJOGREN'S ANTI-SS-A <0.2 AI (0.0-0.9); SJOGREN'S ANTI-SS-B <0.2 AI (0.0-0.9); SMITH ANTIBODIES <0.2 AI (0.0-0.9)
[2019-09-16 12:04] LABS: ANA Pattern Speckled
--- NOTE | 2019-09-16 13:54 | NUR ---
IN IMAGING 1345 - PT WHEELED IN WHEELCHAIR TO IMAGING AT THIS TIME FOR THORACENTESIS.
[2019-09-16 14:54] LABS: Automated BF WBC Count 0.816 K/mm3 (0-999); Body Fluid WBC Count 816 /mm3 (0-999)
[2019-09-16 15:19] LABS: RBC Count, Body Fluid 550 /mm3 (0-0)
--- NOTE | 2019-09-16 15:20 | NUR ---
PAL CARE VISIT MADE - Pt just returned to ICU after thoracentesis and f/u CXR. RN reports that 800cc fluid removed. Introduced myself to pt whe expresses and exhibits profound fatigue after interventions/procedure today. She asks to keep visit short so she can rest before krystian and or DR arrive. I confirmed her code status wishes per current orders and let her know I would document them on the POLST and obtain Dr signature. Pt in agreement and appreciative. She confirms that she does not want CPR or intubation but if needed would accept rescusitative medications and shocks. Dr Chemo Metcalf in shortly after my visit. He reviewed and signed POLST. Copies faxed to medical records and given to Patricia for [facility] pt records. Original POLST placed on the chart & nursing/[employer] inst. to give to pt on d/c home, which may occur later today pending 's assessment and orders. If pt remains hospitalized overnight I will try to see her in am to f/u on any questions or advanced care planning conversation per her request.
[2019-09-16 15:39] LABS: Appearance, Body Fluid Hazy (Clear); Color, Body Fluid Yellow (None-Yellow); Total Cell Count, Body Fluid 100
--- NOTE | 2019-09-16 17:24 | NUR ---
DISCHARGE PERIPHERAL IV REMOVED. COUNSELED PT ON DISCHARGE INTRUCTIONS, PRESCIPRTIONS, MED CHANGES, AND FOLLOW UP APPOINTMENTS. PT DISPLAYED UNDERSTANDING. WHEELED TO CAR WITH FAMILY ESCORT.
== END 2019-09-16 17:30 | disposition home or self-care (01) | DRG 308 ==
LOC: ER 12:46 → ICUE 12:47 → MEDS 12:47 → PCU 20:03 → ICUE 09-12 10:17
PROVIDERS: Emergency Medicine; Family Medicine; Internal Medicine Cardiovascular Disease; Internal Medicine Interventional Cardiology; ADMIT Internal Medicine
PROC: 0W9D30Z Drainage of Pericardial Cavity with Drainage Device, Percutaneous Approach (ICD-10-PCS; principal; 2019-09-13)
PROC: 0W9B3ZX Drainage of Left Pleural Cavity, Percutaneous Approach, Diagnostic (ICD-10-PCS; 2019-09-16)
DX: I48.20 Chronic atrial fibrillation, unspecified (principal); I50.33 Acute on chronic diastolic (congestive) heart failure; I31.3 Pericardial effusion (noninflammatory); E87.1 Hypo-osmolality and hyponatremia; J90 Pleural effusion, not elsewhere classified; M35.00 Sjogren syndrome, unspecified; I11.0 Hypertensive heart disease with heart failure; K44.9 Diaphragmatic hernia without obstruction or gangrene; K21.9 Gastro-esophageal reflux disease without esophagitis; G47.33 Obstructive sleep apnea (adult) (pediatric); K22.70 Barrett's esophagus without dysplasia; M19.90 Unspecified osteoarthritis, unspecified site
CPT/HCPCS: 32555; 33010; 36415; 71045; 71046; 76930; 76937; 80048; 80053; 82042; 82945; 83615; 83735; 83880; 84157; 84484; 85025; 85610; 85651; 85730; 86038; 86039; 86160; 86225; 86235; 87070; 87205; 88108; 88305; 89051; 93005; 93010; 93308; 93321; 96361; 96374; 96375; 96376; 99152; 99153; 99285-25; A9270; C1769; G0378; J1644; J2250; J2405; J3010; J7030

== ENCOUNTER → 2019-12-17 | Outpatient (CLI) | payer MEDICARE ==
[~2019-12-17] MED LIST changes: +ASCO500 PO; +Amiodarone HCl200 MG PO; +FURO40 PO; +METO50ER PO; +OMEPRAZOLE20 MG PO; +POTASSIUM CHLO20 ME1 PO; +PROBIOTIC1 EACH PO; +THERA-D2000 UNIT PO; +THERA1 EACH PO; +XARELTO20 MG PO
== END | disposition home or self-care (01) ==
LOC: LAB 18:11 → LAB SHORT 18:11
DX: N39.0 Urinary tract infection, site not specified (principal)
CPT/HCPCS: 87086

== ENCOUNTER → 2020-07-23 | Outpatient (CLI) | payer MEDICARE ==
[2020-07-23 11:52] LABS: Source, Urine Clean Catch
[2020-07-23 18:13] LABS: Bilirubin, Urine Neg (Neg); Blood, Urine Neg (Neg); Glucose Qualitative, Urine Neg (Neg); Ketones, Urine Neg (Neg); Leukocyte Esterase, Urine 1+ (Neg); Nitrite, Urine Neg (Neg); Protein, Urine Neg (Neg); Specific Gravity, Urine 1.015 (1.003-1.022); Urobilinogen, Urine NORM (Normal)
[2020-07-23 19:39] LABS: Appearance, Urine Clear (Clear); Color, Urine Yellow (P-Yellow)
[2020-07-23 19:40] LABS: Bacteria Rare /hpf; Red Blood Cells, Urine 0-2 /hpf (0-2); Squamous Epithelial Cells Rare /hpf (Few)
== END | disposition home or self-care (01) ==
LOC: LAB 11:49 → LAB SHORT 11:49
PROVIDERS: Nurse Practitioner Family
DX: N39.0 Urinary tract infection, site not specified (principal)
CPT/HCPCS: 81001; 87077; 87086; 87186

== ENCOUNTER → 2020-08-10 | Outpatient (CLI) | payer MEDICARE | END | disposition home or self-care (01) | LOC: LAB 17:49 → LAB SHORT 17:49 | DX: M32.9 Systemic lupus erythematosus, unspecified (principal); N39.0 Urinary tract infection, site not specified | CPT/HCPCS: 87086 ==

== ENCOUNTER → 2020-08-18 | Outpatient (CLI) | payer MEDICARE | END | disposition home or self-care (01) | LOC: PLD 11:44 → LAB SHORT 11:44 | DX: D04.61 Carcinoma in situ of skin of right upper limb, including shoulder (principal) | CPT/HCPCS: 88305 ==

== ENCOUNTER → 2021-12-13 | Outpatient (CLI) | payer MEDICARE | END | disposition home or self-care (01) | LOC: LAB SHORT 15:01 | DX: C44.41 Basal cell carcinoma of skin of scalp and neck (principal); C44.319 Basal cell carcinoma of skin of other parts of face | CPT/HCPCS: 88305 ==

== ENCOUNTER 2022-02-17 08:08 | Day surgery (SDC) | payer MEDICARE ==
[~2022-02-17] VITALS: Ht 154.9 cm; Wt 63.1 kg
[~2022-02-17 08:08] MED LIST changes: +Acerola C500 MG PO; +HYDSUL200 PO; +METO2.5 PO; +Micro-K8 MEQ PO; +NAPR220 PO; +ROSU10TA PO
--- NOTE | 2022-02-17 14:22 | NUR ---
S/P R MASTECTOMY, PT ARRIVED FROM PACU VIA GURNEY, AWAKE, A&OX4, DEENA WRAP NOTED AROUND CHEST AND BREAST BINDER C/D/I, KALPESH DRAIN ON THE R CHEST W/ SEROUSANGUINOUS DRAINAGE, ICE CHIPS GIVEN, DENIES ANY NEED FOR PAIN MEDS AT THIS TIME, CONT. TO MONITOR FOR ANY CHANGES.
--- NOTE | 2022-02-17 15:45 | NUR ---
PATIENT REQUESTING PAIN MEDICATIONS, REPORTS PAIN IN NECK. EDUCATED ON ORAL VERSUS IV PAIN CONTROL, PATIENT REQUESTING IV PAIN CONTROL SHE FEELS LIKE THERE IS A LUMP IN HER THROAT, REPORTS SOME DIFFICULTY SWALLOWING AT TIMES AT HOME.
--- NOTE | 2022-02-17 17:55 | NUR ---
S/P R MASTECTOMY, REPORTS HAVING MINIMAL PAIN, ELEVATED BP, DR. REYNOSO NOTIFIED EARLIER THIS EVENING, HYDRALAZINE ORDERED PRN, MEDICATED FOR PAIN ONCE POST OP, PT ASSISTED TO VOID, BP IMPROVED THIS EVENING, CHEST BINDER C/D/I, NO OTHER CHANGES THIS SHIFT.
--- NOTE | 2022-02-18 05:26 | NUR ---
SHIFT SUMMARY NO ACUTE CHANGES OVERNIGHT. PT REPORTS MINIMAL PAIN MANAGED WITH NAPROSYN AT NIGHT. AMBULATES WITH SBA AND FWW. S/P R MASTECTOMY. R SIDE WEAKNESS ON UPPER EXTREMITIES WITH LIMITIED ROM. R BREAST WITH GAUZE,DEENA WRAP AND BINDER. APPEARS TO BE CDI. TOLERATING PO INTAKE DENIES N/V. PT STS SHE FELT TIRED T/O THE DAY AND SLEPT GOOD ALL NIGHT. VOIDING WITHOUT COMPLAINT. CALL LIGHT WITHIN REACH. WILL CONTINUE TO MONITOR AND WILL PROVIDE REPORT TO ONCOMING NURSE.
[2022-02-18] MEDS ORDERED: HYDR1TAB94 PO (09:23)
--- NOTE | 2022-02-18 11:18 | NUR ---
Pt. is in bed and dressed awaiting physician discharge order. Pt. welcomes my visit. Pt. is pleasant, and rapport is quickly established. Pt. 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 Facilitate a life review. Listen empathetically and repond with pastoral supervisor counseling and guidance. Prayed with Pt. Pt, verbalized gratitude for the spiritual care visit.
--- NOTE | 2022-02-18 13:58 | NUR ---
1350 DISCHARGE INSTRUCTIONS, KALPESH EMPTYING AND CARE AND DRESSING CHANGES DISCUSSED WITH PATIENT AND HER FRIEND. PT AND FRIEND VERBALIZE UNDERSTANDING OF ALL DISCHARGE INSTRUCTIONS. CHEST DRESSING DRY AND INTACT. KALPESH WITH SCANT AMOUNT SS DRAINAGE. PT AMBULATING IN ROOM WITH STANDBY ASSSIST. BEST PO FOOD AND FLUIDS WITHOUT NAUSEA. VOIDING CLEAR YELLOW URINE,. DISCHARGED TO HOME
== END 2022-02-18 13:50 | disposition home or self-care (01) ==
LOC: ORSCMMR 08:08 → NM 09:00 → SURS 13:51 → ORSCMMR 02-18 13:50
PROVIDERS: Surgery
PROC: 0HBT0ZZ Excision of Right Breast, Open Approach (ICD-10-PCS; principal; 2022-02-17 10:00)
PROC: 07B50ZX Excision of Right Axillary Lymphatic, Open Approach, Diagnostic (ICD-10-PCS; principal; 2022-02-17 10:00)
DX: C50.311 Malignant neoplasm of lower-inner quadrant of right female breast (principal); I48.0 Paroxysmal atrial fibrillation; I10 Essential (primary) hypertension; E78.5 Hyperlipidemia, unspecified; G47.33 Obstructive sleep apnea (adult) (pediatric); Z79.01 Long term (current) use of anticoagulants; Z79.899 Other long term (current) drug therapy
CPT/HCPCS: 38792; 88307; A9270; A9520; J0690; J1100; J2250; J2370; J2405; J2704; J3010; J7120; Q9968

== ENCOUNTER → 2022-03-25 | Outpatient (CLI) | payer MEDICARE ==
[~2022-03-25] MED LIST changes: +HYDR1TAB94 PO
[2022-03-25 13:37] LABS: Source, Urine Voided
[2022-03-25 15:26] LABS: Appearance, Urine Clear (Clear); Bilirubin, Urine Neg (Neg); Blood, Urine Neg (Neg); Color, Urine Yellow (P-Yellow); Glucose Qualitative, Urine Neg (Neg); Ketones, Urine Neg (Neg); Leukocyte Esterase, Urine 1+ (Neg); Nitrite, Urine Neg (Neg); Protein, Urine Neg (Neg); Specific Gravity, Urine 1.015 (1.003-1.022); Urobilinogen, Urine NORM (Normal)
[2022-03-25 16:12] LABS: Bacteria Few /hpf; Red Blood Cells, Urine 0-2 /hpf (0-2); Squamous Epithelial Cells Few /hpf (Few)
== END | disposition home or self-care (01) ==
LOC: LAB 13:35 → LAB SHORT 13:35
PROVIDERS: Nurse Practitioner Family
DX: I10 Essential (primary) hypertension (principal)
CPT/HCPCS: 81001; 87077; 87086; 87186

== ENCOUNTER 2025-09-12 15:38 | Emergency (ER) | payer MEDICARE ==
[~2025-09-12] VITALS: Ht 157.5 cm; Wt 55.3 kg
[2025-09-12 16:52] LABS: BASOPHILS ABSOLUTE AUTO 0.06 K/mm3 (0.00-0.23); BASOPHILS PERCENT AUTO 0 % (0-2); EOSINOPHILS ABSOLUTE AUTO 0.01 K/mm3 (0.00-0.68); EOSINOPHILS PERCENT AUTO 0 % (0-6); Hematocrit 40.7 % (33.0-51.0); Hemoglobin 13.4 g/dL (11.5-16.0); IMMATURE GRAN ABSOLUTE AUTO 0.08 K/mm3 (0.00-0.10); IMMATURE GRAN PERCENT AUTO 1 % (0-1); LYMPHOCYTES ABSOLUTE AUTO 1.09 K/mm3 (0.84-5.20); LYMPHOCYTES PERCENT AUTO 7 % (21-46); MONOCYTES ABSOLUTE AUTO 0.93 K/mm3 (0.16-1.47); MONOCYTES PERCENT AUTO 6 % (4-13); Mean Corpuscular HGB Conc 32.9 g/dL (31.5-36.5); Mean Corpuscular Volume 98 fL (80-100); NEUTROPHILS ABSOLUTE AUTO 14.36 K/mm3 (1.96-9.15); NEUTROPHILS PERCENT AUTO 87 % (41-73); NRBC ABSOLUTE 0.00 K/mm3 (0.00-0.02); NRBC Auto 0.0 /100 WBC (0.0-0.2); Platelet Count 281 K/mm3 (150-400); RDW Coefficient Variation 14.0 % (11.7-14.2); RDW Standard Deviation 50.4 fL (35.1-46.3)
[2025-09-12 17:13] LABS: Alanine Aminotransfer (ALT/SGP 29.0 U/L (12-78); Albumin, Blood 4.4 g/dL (3.4-5.0); Albumin/Globulin Ratio 1.1 (0.8-1.8); Anion Gap 10.0 mmol/L (3-11); Aspartate Aminotrans (AST/SGOT 21.0 U/L (12-37); Bilirubin, Total 0.9 mg/dL (0.1-1.0); Blood Urea Nitrogen 23.0 mg/dL (8-24); CO2, Blood 26.0 mmol/L (21-32); Calcium, Blood 9.6 mg/dL (8.5-10.1); Chloride, Blood 103.0 mmol/L (98-108); Creatinine, Blood 1.13 mg/dL (0.40-1.00); Globulin, Blood 3.9 g/dL (2.2-4.0); Glucose, Blood 109.0 mg/dL (70-99); Potassium, Blood 3.7 mmol/L (3.5-5.5); Sodium, Blood 135.0 mmol/L (136-145); Total Protein, Blood 8.3 g/dL (6.4-8.2)
[2025-09-12] MEDS ORDERED: Dexamethasone Sod Phos 10 MG/ML 1ML VIAL IV ONE (19:45)
[2025-09-12] MEDS ORDERED: Ketorolac Tromethamine 15mg Vial IV ONE (19:45)
[2025-09-12] MEDS ORDERED: Clindamycin 600mg in D5W 50 ML IV ONE (21:35)
[2025-09-12] MEDS ORDERED: NS 1,000 ML IV SCH (22:15)
[2025-09-12 23:30] VITALS: BP 136/58
== END 2025-09-12 23:47 | disposition short-term general hospital (02) ==
LOC: ER 15:38
PROVIDERS: Physician Assistant
DX: K12.2 Cellulitis and abscess of mouth (principal); Z79.899 Other long term (current) drug therapy; Z88.1 Allergy status to other antibiotic agents; Z88.0 Allergy status to penicillin; Z88.8 Allergy status to other drugs, medicaments and biological substances
CPT/HCPCS: 36415; 70491; 71046; 80053; 83605; 85025; 93005; 93010; 96365-59; 96375-59; 99285-25; J1100; J1885; J7030; Q9967